=== PATIENT | female | born 1940 | race Two or more races ===

== ENCOUNTER 2024-05-14 12:25 | Inpatient (IN) | payer MEDICARE, MEDICAID, SELFPAY ==
[2024-05-14] VITALS (10 sets, daily range): BP systolic 112–188; BP diastolic 65–89; PULSE 61–74; RESP 14–96; TEMP 36.5–37.1; O2SAT 92–98; BMI 25.1
--- NOTE | 2024-05-14 13:06 | XR_ITS ---
Examination: PA lateral chest 2 views TECHNIQUE: Upright PA lateral chest 2 views Exam date and time: May 14, 2024 at 1407 hours INDICATIONS: Chest pain today. FINDINGS: Minor prominence left ventricle Mild vascular congestion Blunting of posterior costophrenic angles Increased AP dimension chest No lobar pneumonia No jus pulmonary edema IMPRESSION: Mild vascular congestion Suspicious for small bilateral pleural effusions
--- NOTE | 2024-05-14 13:06 | EKG_ITS ---
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[id number] Requested By: Jaun Johnston (REHABILITATION ASSISTANT) Order Number: [id number] Reading MD: Jaun Johnston (REHABILITATION ASSISTANT) Measurements Intervals [place] Rate: 68 P: 68 IA: 159 QRS: -74 QRSD: 87 T: 82 QT: 373 QTc: 397 Interpretive Statements SINUS RHYTHM WITH OCCASIONAL ECTOPIC PREMATURE COMPLEXES PATTERN CONSISTENT WITH PULMONARY DISEASE LEFT ANTERIOR FASCICULAR BLOCK [QRS AXIS <= -45, QR IN I, RS IN II] Compared to ECG 10/17/2022 09:06:00 Left anterior fascicular block now present Sinus bradycardia no longer present Sinus arrhythmia no longer present /store/S0/[id number]/ecg/[id number].pdf
--- NOTE | 2024-05-14 13:06 | PD.EDRME ---
Rapid Medical Screening Exam RME Arrival date/time: 05/14/24 12:25 84-year-old female presents the emergency department complains of chest pain and neck pain x 3 days Chief Complaint: General Adult/Misc Complain Time Seen by Provider: 05/14/24 12:28 Vital signs: Vital Signs Temperature 98.2 F 05/14/24 12:41 Pulse Rate 74 05/14/24 12:41 Respiratory Rate 20 05/14/24 12:41 Blood Pressure 161/89 H 05/14/24 12:41 Pulse Oximetry (%) 96 05/14/24 12:41 Oxygen Delivery Method Room Air 05/14/24 12:41
[2024-05-14 13:27] LABS: Basophils % (Auto) 1 % (0-2.5); Eosinophils % (Auto) 0 % (0-10); Hematocrit 45.3 % (36.0-46.0); Hemoglobin 15.4 g/dL (12.0-16.0); Immature Granulocytes % (Auto) 0 % (0-0); Immature Granulocytes Auto 0.02 Thou/mm3 (0.00-0.00); Lymphocytes # (Auto) 1.2 Thou/mm3 (1.0-4.8); Lymphocytes % (Auto) 17 % (10-50); Mean Corpuscular Hemoglobin 30.4 pg (25.0-35.0); Mean Corpuscular Volume 89 fL (80-100); Monocytes # (Auto) 0.5 Thou/mm3 (0.0-0.8); Monocytes % (Auto) 6 % (0-12); Neutrophils # (Auto) 5.4 Thou/mm3 (1.8-7.7); Neutrophils % (Auto) 76 % (37-80); Nucleated Red Blood Cell % 0 /100 WBC (0); Platelet Count 312 Thou/mm3 (140-440); RDW Standard Deviation 41.9 fL (36.4-46.3); Red Blood Count 5.07 Miln/mm3 (4.00-5.20); White Blood Count 7.1 Thou/mm3 (3.6-11.0)
[2024-05-14 13:41] LABS: INR 1.1 (0.9-1.3); Partial Thromboplastin Time 26.6 Seconds (22.0-36.0); Prothrombin Time 11.9 Seconds (9.0-12.2)
[2024-05-14 13:43] LABS: B-Type Natriuretic Peptide 174 pg/mL (0-100)
[2024-05-14 14:01] LABS: Alanine Aminotransferase 23 U/L (10-49); Albumin, Serum 4.7 gm/dL (3.4-4.8); Albumin/Globulin Ratio 1.6 (1.2-2.2); Alkaline Phosphatase 111 U/L (46-116); Anion Gap 7 (7-16); Aspartate Amino Transferase 23 U/L (0-34); BUN/Creatinine Ratio 20 Ratio (12-20); Bilirubin,Total 0.4 mg/dL (0.3-1.2); Blood Urea Nitrogen 12 mg/dL (9-23); Calcium 9.6 mg/dL (8.3-10.6); Calcium (Corrected) 9.6 mg/dL (8.5-10.1); Carbon Dioxide 27.7 mMol/L (20.0-31.0); Chloride 100 mMol/L (98-107); Creatinine (Component) 0.6 mg/dL (0.6-1.3); Estimated Creatinine Clearance 50.5 mL/min (>60); Globulin 2.9 gm/dL (2.3-3.5); Glucose 169 mg/dL (74-106); Osmolality,Calculated 273 (275-295); Potassium 4.8 mMol/L (3.4-5.1); Sodium 135 mMol/L (136-145); Total Protein 7.6 gm/dL (5.7-8.2); eGFR > 60 See Note
[2024-05-14] MEDS: Aspirin 325 MG TABLET PO (15:35)
[2024-05-14] MEDS: NITROGLYCERIN OINT 2% 1 INCH PACKET TOP (15:35)
[2024-05-14] MEDS: NITROGLYCERIN 0.4 MG SUBL BTL #25 SL (15:36)
[2024-05-14 16:34] LABS: Troponin I 1.084 ng/mL (0.0-0.045)
--- NOTE | 2024-05-14 16:42 | PD.EDADULT ---
ED General RME/HPI General Chief complaint: General Adult/Misc Complain Stated complaint: CHEST/NCK/HAND PAIN/SOB x ! DAYS Time Seen by Provider: 05/14/24 12:28 Arrival date/time: 05/14/24 12:25 RME / HPI RME / HPI narrative: 84-year-old female patient with significant history of diabetes mellitus hypercholesterolemia, was brought in by family for evaluation regarding chest pain. Patient been having chest pain since last night, substernal in location, severity moderate. Also complained of pain radiating to the neck and left upper extremity. Denies any cough denies any shortness of breath denies any other complaints no medication was taken prior arrival Related Data Home Medications ?Medication ?Instructions ?Recorded ?Confirmed empagliflozin 25 mg tablet 25 mg PO QAM 01/17/22 10/17/22 (Jardiance) insulin glargine 100 unit/mL (3 10 unit subcut QAM 01/17/22 10/17/22 mL) subcutaneous pen ([employer]aglar KwikPen U-100 Insulin) levothyroxine 25 mcg tablet 25 mcg PO QDAY 01/17/22 10/18/22 olopatadine 0.1 % eye drops 1 drp ophthalmic (eye) BID 01/17/22 06/20/22 atorvastatin 10 mg tablet 10 mg PO QDAY 10/17/22 10/17/22 ibuprofen 600 mg tablet 600 mg PO TID PRN Pain 10/17/22 10/17/22 Previous Rx's ?Medication ?Instructions ?Recorded flash glucose scanning reader #1 ea 06/23/22 (FreeStyle Yeny 2 Reese) flash glucose sensor (FreeStyle #1 ea 06/23/22 Yeny 2 Sensor kit) Allergies Allergy/AdvReac Type Severity Reaction Status Date / Time No Known Allergies Allergy Verified 05/14/24 12:30 Review of Systems Review of Systems Narrative Review of Systems: Review of system reviewed and within normal limits except mentioned in HPI ED Exam Narrative Physical exam: VITAL SIGNS: Reviewed. GENERAL APPEARANCE: Alert and interactive, follows commands, no acute distress, HEAD AND FACE: Non-traumatic. ENT: PERRL, pink conjunctivitis, eyelid no trauma, Mucous membrane moist. NECK: Supple, nontender, no nuchal rigidity. CHEST: Substernal chest tenderness, no crepitus, no paradoxical movement, no retractions. LUNGS: Clear, well ventilated, symmetric, no rales, no wheezing, no ronchi, no stridor, good breath sounds bilaterally. HEART: Regular rate, regular rhythm, no murmur, no gallops. ABDOMEN: Soft, positive bowel sounds, nondistended, no guarding, nontender, no rebound, no masses, RECTAL: Deferred. GENITAL: Deferred. NEUROLOGICAL: Gross motor function intact sensory function intact, Appropriate for age. MUSCULOSKELETAL: low back nontender, full range of motion. EXTREMITIES: Nontender, full range of motion. SKIN: Color pink, dry, no rash, no lacerations, no abrasions, no contusions. LYMPHATICS: Deferred. Course Quality Measures none Orders Category Date Time Status COVID-19 Screening Questionnaire NOW Care 05/14/24 16:30 Active Decision to Admit X1 Care 05/14/24 16:30 Active EKG (ED ONLY) *Do not use* NOW Care 05/14/24 13:06 Completed Notify provider NOW Care 05/14/24 16:30 Active Consult to Cardiology Stat Cons 05/14/24 15:20 Ordered EKG (ED Only) Stat Exams 05/14/24 13:06 Draft XR chest 2V Stat Exams 05/14/24 13:06 Completed B-Type Natriuretic Peptide Stat Lab 05/14/24 13:18 Completed CBC Stat Lab 05/14/24 13:18 Completed Comprehensive Metabolic Panel Stat Lab 05/14/24 13:18 Completed Magnesium Stat Lab 05/14/24 13:18 Completed Partial Thromboplastin Time AM DRAW Lab 05/16/24 05:00 Ordered Partial Thromboplastin Time Stat Lab 05/14/24 13:18 Completed Prothrombin Time with INR AM DRAW Lab 05/16/24 05:00 Ordered Prothrombin Time with INR Stat Lab 05/14/24 13:18 Completed Troponin I Stat Lab 05/14/24 13:18 Completed Troponin I Stat Lab 05/14/24 15:40 Completed Aspirin Med 05/14/24 15:20 Discontinued 325 mg PO X1 ONE Heparin Inj Med 05/14/24 16:29 Discontinued 3,350 unit IV X1 ONE Heparin/D5w 25K 250 ML Ivpb [Heparin in D5w Ivpb] Med 05/14/24 16:30 Active 25,000 unit in 250 ml IV 12 units/kg/hr Nitroglycerin Oint 2% [Nitro-paste Oint 2%] Med 05/14/24 15:20 Discontinued 1 inch TOP X1 ONE Nitroglycerin [Nitrostat 1/150] Med 05/14/24 15:20 Discontinued 0.4 mg SL X1 ONE Vital Signs Vital signs: Vital Signs Temperature 98.2 F 05/14/24 12:41 Pulse Rate 74 05/14/24 12:41 Respiratory Rate 20 05/14/24 12:41 Blood Pressure 161/89 H 05/14/24 12:41 Pulse Oximetry (%) 96 05/14/24 12:41 Oxygen Delivery Method Room Air 05/14/24 12:41 [facility] Patient data External records reviewed:: None Clinical information provided by:: patient Social determinants that could affect healthcare access:: none (None) Patient has the following chronic illnesses:: Diabetes mellitus How is presenting disease/condition affected by chronic disease/condition?: caused by Evaluation data The following diagnostics were reviewed and interpreted by me:: lab results, radiology exam(s) and EKG tracing(s) Lab and/or radiology exams considered but not ordered:: None Interpretation Summary: EKG as interpreted by me showed paced rhythm, ventricular rate of 68 bpm, OR interval 159 MS, no ST segment elevation or depression noted. Initial troponin was noted to be 0.4 after triage it went up to 1.0. Chest ray showed mild pleural effusion. No pneumonia noted Medications Medications considered but not ordered:: None Medication administrations:: Medication Administration History Acetaminophen (Acetaminophen 325 Mg Tablet) 650 mg PO Q6H PRN PRN Reason: PAIN SCALE 1-3 (mild Stop: 06/13/24 17:12 Hydrocodone Bitart/Acetaminophen (Hydrocodone/Apap 10/325 Tab) 1 tab PO Q4H PRN PRN Reason: PAIN SCALE 4-6 (Moderate Stop: 05/19/24 17:12 Aspirin (Aspirin Ec 81 Mg Tabec) 81 mg PO QDAY WALTER Stop: 06/14/24 08:59 Atorvastatin Calcium (Atorvastatin Calcium 20 Mg Tablet) 40 mg PO HS WALTER Stop: 06/14/24 20:59 Dextrose (Dextrose 50%-Water Inj 50 Ml Syringe) 25 ml IV Q15MIN PRN PRN Reason: BG 50-70 responsive npo pt Stop: 06/13/24 17:20 Dextrose (Dextrose 50%-Water Inj 50 Ml Syringe) 50 ml IV Q15MIN PRN PRN Reason: BG <50 OR BG <70 & pt unresponsive Stop: 06/13/24 17:20 Glucagon (Glucagon Inj 1 Mg Vial) 1 mg IM Q15MIN PRN PRN Reason: BG <70, and no IV access Heparin Sodium/Dextrose (Heparin In D5w Ivpb) 25,000 unit in 250 mls @ 6.651 mls/hr IV .Q24H [facility]; Protocol Stop: 05/28/24 16:29 Last Admin: 05/14/24 17:16 Dose: 12 units/kg/hr, 6.651 mls/hr Documented By: TM Co-signed By: ED Insulin Human Lispro (Insulin Lispro (Admelog) 1 Unit/0.01 Ml Unit) 0 unit SC AC [facility]; Protocol Stop: 06/14/24 07:29 Levothyroxine Sodium (Levothyroxine Sodium 25 Mcg Tablet) 75 mcg PO [facility] Stop: 06/14/24 05:59 Morphine Sulfate (Morphine Sulf Inj 10 Mg/Ml Vial) 0.5 mg IVP Q4H PRN PRN Reason: Pain 7-10 Stop: 05/19/24 17:31 Discontinued Medications Aspirin (Aspirin 325 Mg Tablet) 325 mg PO X1 ONE Stop: 05/14/24 15:21 Last Admin: 05/14/24 15:35 Dose: 325 mg Documented By: TM Comments: had to waste first one, it dropped on the floor Aspirin (Aspirin Ec 81 Mg Tabec) 81 mg PO QDAY [facility] Stop: 06/14/24 08:59 Atorvastatin Calcium (Atorvastatin Calcium 10 Mg Tablet) 40 mg PO X1 ONE Stop: 05/14/24 17:26 Last Admin: 05/14/24 18:05 Dose: 40 mg Documented By: TM Heparin Sodium (Porcine) (Heparin Sod Inj 5000 Unit/Ml Vial) 3,350 unit 60 unit/kg (3350 unit) IV X1 ONE; Protocol Stop: 05/14/24 16:30 Last Admin: 05/14/24 17:15 Dose: 3,350 unit Documented By: TM Co-signed By: ED Levothyroxine Sodium (Levothyroxine Sodium 100 Mcg Tablet) 72 mcg PO [facility] Stop: 06/14/24 05:59 Nitroglycerin (Nitroglycerin 0.4 Mg Subl Btl #25) 0.4 mg SL X1 ONE Stop: 05/14/24 15:21 Last Admin: 05/14/24 15:36 Dose: 0.4 mg Documented By: TM Nitroglycerin (Nitroglycerin Oint 2% 1 Inch Packet) 1 inch TOP X1 ONE Stop: 05/14/24 15:21 Last Admin: 05/14/24 15:35 Dose: 1 inch Documented By: MARIA INES Aspirin, Nitropaste, nitro, and heparin drip and bolus Consultations Consultation(s) initiated? (list below): Yes Consultation #1 (Physician, Specialty, Details): Hematologist Oncologist, Dr. Stroud, thank you DrEduardo Diagnosis Differential Diagnosis ED Complaint MDM: Chest pain, elevated troponin, non-STEMI Most likely diagnosis given after review of the tests above:: Non-STEMI Admission Indicated Admission indicated?: indicated Explain why admission is indicated or not indicated:: Needs to be admitted for further management Admission Request Was there a request for admission?: No Disposition Plan Disposition Plan: Admit Medical Decision Making MDM Narrative MDM Narrative: 84-year-old female patient with significant history of diabetes mellitus hypercholesterolemia, was brought in by family for evaluation regarding chest pain. Patient been having chest pain since last night, substernal in location, severity moderate. Also complained of pain radiating to the neck and left upper extremity. Denies any cough denies any shortness of breath denies any other complaints no medication was taken prior to arrival. Initial troponin was noted to be 0.4 after 3 hours went up to 1. The rest of the labs unremarkable. EKG showed no ST segment elevation depression noted. Chest x-ray showed Mild vascular congestion Suspicious for small bilateral pleural effusions I spoke with Dr. Stroud director of consumer affairs, who told me to admit the patient under hospitalist, started patient on heparin drip and aspirin Patient received aspirin and nitro and Nitropaste with complete resolution of chest pain. Differential Diagnosis Differential Diagnosis: Chest pain, elevated troponin, non-STEMI Lab Data 05/14/24 13:18 05/14/24 13:18 Labs: Lab Results 05/14/24 05/14/24 Range/Units 13:18 15:40 WBC 7.1 (3.6-11.0) Thou/mm3 RBC 5.07 (4.00-5.20) Miln/mm3 Hgb 15.4 (12.0-16.0) g/dL Hct 45.3 (36.0-46.0) % MCV 89 (80-100) fL MCH 30.4 (25.0-35.0) pg MCHC 34.0 (31.0-37.0) g/dl RDW Std Deviation 41.9 (36.4-46.3) fL Plt Count 312 (140-440) Thou/mm3 Neut % (Auto) 76 (37-80) % Lymph % (Auto) 17 (10-50) % [place] % (Auto) 6 (0-12) % Eos % (Auto) 0 (0-10) % Baso % (Auto) 1 (0-2.5) % Neut # (Auto) 5.4 (1.8-7.7) Thou/mm3 Lymph # (Auto) 1.2 (1.0-4.8) Thou/mm3 [place] # (Auto) 0.5 (0.0-0.8) Thou/mm3 Eos # (Auto) 0.0 (0.0-0.5) Thou/mm3 Baso # (Auto) 0.0 (0.0-0.2) Thou/mm3 Immature Gran # (Auto) 0.02 H (0.00-0.00) Thou/mm3 Absolute Nucleated RBC 0.00 (0.00-0.00) Thou/mm3 Immature Gran % 0 (0-0) % Nucleated RBC % 0 (0) /100 WBC PT 11.9 (9.0-12.2) Seconds INR 1.1 (0.9-1.3) APTT 26.6 (22.0-36.0) Seconds Sodium 135 L (136-145) mMol/L Potassium 4.8 (3.4-5.1) mMol/L Chloride 100 (98-107) mMol/L Carbon Dioxide 27.7 (20.0-31.0) mMol/L Anion Gap 7 (7-16) BUN 12 (9-23) mg/dL Creatinine 0.6 (0.6-1.3) mg/dL Estim Creat Clear Calc 50.5 L (>60) mL/min eGFR > 60 (60 - ) See Note BUN/Creatinine Ratio 20 (12-20) Ratio Glucose 169 H (74-106) mg/dL Calculated Osmolality 273 L (275-295) Calcium 9.6 (8.3-10.6) mg/dL Corrected Calcium 9.6 (8.5-10.1) mg/dL Magnesium 2.0 (1.6-2.6) mg/dL Total Bilirubin 0.4 (0.3-1.2) mg/dL AST 23 (0-34) U/L ALT 23 (10-49) U/L Alkaline Phosphatase 111 (46-116) U/L Troponin I 0.420 H* 1.084 H* D (0.0-0.045) ng/mL B-Natriuretic Peptide 174 H (0-100) pg/mL Total Protein 7.6 (5.7-8.2) gm/dL Albumin 4.7 (3.4-4.8) gm/dL Globulin 2.9 (2.3-3.5) gm/dL Albumin/Globulin Ratio 1.6 (1.2-2.2) Discharge Plan Plan Patient Disposition: Admit Acute Care w/in Hospital Problem List Clinical Impression: Non-ST elevation CA (NSTEMI)
[2024-05-14] MEDS: HEPARIN SOD INJ 5000 UNIT/ML VIAL 3350 UNIT IV (17:15)
[2024-05-14] MEDS: Heparin/D5w 25K 250 ML Ivpb 25,000 UNIT/250 ML BAG 6.651 UNIT IV (17:16)
--- NOTE | 2024-05-14 17:19 | ECHO_ITS ---
Transthoracic Echo Report Ht (in): 58 Wt (lb): 122 Exam Location: [employer] Status: Inpatient Vinyl Hanger: Stephania Pop Indications: Procedure Performed: BP: 120 / 76 HR: Rhythm: PVC Technical Quality: Fair MEASUREMENTS (Male / Female) Normal Values 2D ECHO LV Diastolic Diameter PLAX 4.7 cm 4.2 - 5.9 / 3.9 - 5.3 cm LV Systolic Diameter PLAX 3.4 cm IVS Diastolic Thickness 0.9 cm 0.6 - 1.0 / 0.6 - 0.9 cm LVPW Diastolic Thickness 0.8 cm 0.6 - 1.0 / 0.6 - 0.9 cm LV Relative Wall Thickness 0.4 LVOT Diameter 1.6 cm LA Volume Index 44.0 cm?/m? 16 - 28 cm?/m? Ascending Aorta Diameter 2.9 cm M-MODE Aortic Root Diameter MM 2.2 cm LA Systolic Diameter MM 4.4 cm LA Ao Ratio MM 2.0 AV Cusp Separation MM 1.7 cm DOPPLER AV Peak Velocity 134.0 cm/s AV Peak Gradient 7.2 mmHg AV Mean Gradient 4.0 mmHg AV Velocity Time Integral 27.0 cm LVOT Peak Velocity 94.6 cm/s LVOT Peak Gradient 3.6 mmHg LVOT Velocity Time Integral 21.2 cm AV Area Cont Eq vti 1.6 cm? AV Area Cont Eq pk 1.4 cm? MV Peak Velocity 99.0 cm/s MV Peak Gradient 3.9 mmHg MV Mean Velocity 57.8 cm/s MV Mean Gradient 2.0 mmHg MV Area PHT 4.7 cm? MR Peak Velocity 364.0 cm/s MR Peak Gradient 53.0 mmHg Mitral E Point Velocity 82.9 cm/s Mitral A Point Velocity 88.3 cm/s Mitral E to A Ratio 0.9 LV E' Lateral Velocity 9.0 cm/s Mitral E to LV E' Lateral Ratio 9.2 LV E' Septal Velocity 7.3 cm/s Mitral E to LV E' Septal Ratio 11.4 TR Peak Velocity 231.0 cm/s TR Peak Gradient 21.3 mmHg FINDINGS Left Ventricle Normal left ventricular size, wall thickness, systolic function with no obvious regional wall motion abnormalities. The ejection fraction is visually estimated at 55-60%. Right Ventricle The right ventricle is normal in size and systolic function. The estimated right ventricular systoli c pressure, 27mmHg. RAP 5. Left Atrium The left atrium is moderately dilated. Right Atrium The right atrium is normal by two-dimensional imaging, color flow and Doppler imaging with no struct ural abnormalities, no thrombus formation present. Atrial Septum The interatrial septum appears normal with no evidence of a shunt. Aorta The aorta is normal by two-dimensional, color flow and Doppler interrogation. Mitral Valve The mitral valve is normal by two-dimensional, color flow and Doppler interrogation. There is mild mitral valve regurgitation. Aortic Valve The aortic valve is trileaflet and normal by two-dimensional, color flow and Doppler interrogation. There is mild aortic valve regurgitation. Tricuspid Valve The tricuspid valve is normal by two-dimensional, color flow and Doppler interrogation. There is mil d tricuspid valve regurgitation. Pulmonic Valve There is trace pulmonic valve regurgitation. Vessels The pulmonary artery appears normal. The inferior vena cava pulmonary and hepatic veins appear travis l. Pericardium The pericardium is normal by two-dimensional imaging. There is no significant pericardial effusion. CONCLUSIONS Indication: Chest pain Normal LV size and function. Estimated EF 55-60% Normal RV size and function. Moderate LA dilatation Mild MR, TR, AI. Trace PI. Jose Stroud (Electronically Signed) Final Date: 17 May 2024 17:20
--- NOTE | 2024-05-14 17:28 | ESHP_ITS ---
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 The patient reported the pain to be retrosternal, radiating to bilateral shoulder and back of neck. She did not take any medications until she presented to ED, as she was expecting the pain to go on its own. She was given sublingual nitro in the ED after which her pain improved. She denied any lightheadedness, headache, sore throat, SOB, abdominal pain, any changes in bowel or bladder habit, or leg swelling. She denied any fever or chills, nausea or vomiting. In the ED her vitals were significant for blood pressure 161/89, CBC WNL, CMP was significant for sodium 135, blood sugar 169, troponin 0.420 that trended up to 1.084. BNP was 174. The patient received aspirin 325 mg, Nitropaste and nitro tape, was started on heparin drip. The patient was admitted to telemetry unit for further management of acute chest pain. PMH: As mentioned above PSHx: As mentioned above Family history: Unremarkable Social history: Denies alcohol, smoking or any drug abuse Medications: Levothyroxine 75 mcg daily, metformin 500 mg twice daily, and atorvastatin 20 Mg daily Review of Systems Review of Systems Systems Reviewed: All systems reviewed, normal except as documented Exam Vital Signs Temp Pulse Resp BP Pulse Ox O2 Del Method 98.0 F 61 17 114/66 96 Room Air 05/14/24 16:00 05/14/24 16:00 05/14/24 16:00 05/14/24 16:00 05/14/24 16:05/14/24 16:00 Narrative Exam General: Elderly, cooperative, well-nourished lady, no acute distress, Alert and Oriented x 3 HEENT: Moist mucous membranes, oropharynx clear Neck: Supple, No masses, No JVD CVS: S1S2 Regular rate and rhythm, No murmurs, rubs or gallops Lungs: Clear to auscultation with no accessory use, no wheeze no rhonchi Abd: Soft, NT/ND, +BS, no organomegaly Ext: No edema, warm and well perfused Skin: No rash Psych: Appropriate mood and affect Results: Labs 05/14/24 13:18 05/14/24 13:18 Labs: Short CBC 05/14/24 Range/Units 13:18 WBC 7.1 (3.6-11.0) Thou/mm3 Hgb 15.4 (12.0-16.0) g/dL Hct 45.3 (36.0-46.0) % Plt Count 312 (140-440) Thou/mm3 BMP 05/14/24 13:18 Sodium 135 L Potassium 4.8 Chloride 100 Carbon Dioxide 27.7 BUN 12 Creatinine 0.6 Glucose 169 H Calcium 9.6 Cardiac Enzymes 05/14/24 05/14/24 Range/Units 13:18 15:40 Troponin I 0.420 H* 1.084 H* D (0.0-0.045) ng/mL Liver Function 05/14/24 Range/Units 13:18 Total Bilirubin 0.4 (0.3-1.2) mg/dL AST 23 (0-34) U/L ALT 23 (10-49) U/L Alkaline Phosphatase 111 (46-116) U/L Albumin 4.7 (3.4-4.8) gm/dL Quality Measures Quality Measures VTE prophylaxis Advance care planning discussed with:: patient and child Medications Home Medications and Allergies Home Medications ?Medication ?Instructions ?Recorded ?Confirmed ?Type empagliflozin 25 mg tablet 25 mg PO QAM 01/17/22 10/17/22 History (Jardiance) insulin glargine 100 unit/mL (3 10 unit subcut QA 01/17/22 10/17/22 History mL) subcutaneous pen (Basaglar KwikPen U-100 Insulin) levothyroxine 25 mcg tablet 25 mcg PO QDAY 01/17/22 10/18/22 History olopatadine 0.1 % eye drops 1 drp ophthalmic (eye) BID 01/17/22 06/20/22 History atorvastatin 10 mg tablet 10 mg PO QDAY 10/17/22 10/17/22 History ibuprofen 600 mg tablet 600 mg PO TID PRN Pain 10/17/22 10/17/22 History Allergies Allergy/AdvReac Type Severity Reaction Status Date / Time No Known Allergies Allergy Verified 05/14/24 12:30 Visit Medications Acetaminophen (Acetaminophen 325 Mg Tablet) 650 mg PO Q6H PRN PRN Reason: PAIN SCALE 1-3 (mild Stop: 06/13/24 17:12 Hydrocodone Bitart/Acetaminophen (Hydrocodone/Apap 10/325 Tab) 1 tab PO Q4H PRN PRN Reason: PAIN SCALE 4-6 (Moderate Stop: 05/19/24 17:12 Dextrose (Dextrose 50%-Water Inj 50 Ml Syringe) 25 ml IV Q15MIN PRN PRN Reason: BG 50-70 responsive npo pt Stop: 06/13/24 17:20 Dextrose (Dextrose 50%-Water Inj 50 Ml Syringe) 50 ml IV Q15MIN PRN PRN Reason: BG <50 OR BG <70 & pt unresponsive Stop: 06/13/24 17:20 Glucagon (Glucagon Inj 1 Mg Vial) 1 mg IM Q15MIN PRN PRN Reason: BG <70, and no IV access Heparin Sodium/Dextrose (Heparin In D5w Ivpb) 25,000 unit in 250 mls @ 6.651 mls/hr IV .Q24H [facility]; Protocol Stop: 05/28/24 16:29 Last Admin: 05/14/24 17:16 Dose: 12 units/kg/hr, 6.651 mls/hr Insulin Human Lispro (Insulin Lispro (Admelog) 1 Unit/0.01 Ml Unit) 0 unit SC AC [facility]; Protocol Stop: 06/14/24 07:29 Levothyroxine Sodium (Levothyroxine Sodium 100 Mcg Tablet) 75 mcg PO ACBR [facility] Stop: 06/14/24 05:59 Discontinued Medications Aspirin (Aspirin 325 Mg Tablet) 325 mg PO X1 ONE Stop: 05/14/24 15:21 Last Admin: 05/14/24 15:35 Dose: 325 mg Atorvastatin Calcium (Atorvastatin Calcium 10 Mg Tablet) 40 mg PO X1 ONE Stop: 05/14/24 17:26 Heparin Sodium (Porcine) (Heparin Sod Inj 5000 Unit/Ml Vial) 3,350 unit 60 unit/kg (3350 unit) IV X1 ONE; Protocol Stop: 05/14/24 16:30 Last Admin: 05/14/24 17:15 Dose: 3,350 unit Levothyroxine Sodium (Levothyroxine Sodium 100 Mcg Tablet) 72 mcg PO ACBR [facility] Stop: 06/14/24 05:59 Nitroglycerin (Nitroglycerin 0.4 Mg Subl Btl #25) 0.4 mg SL X1 ONE Stop: 05/14/24 15:21 Last Admin: 05/14/24 15:36 Dose: 0.4 mg Nitroglycerin (Nitroglycerin Oint 2% 1 Inch Packet) 1 inch TOP X1 ONE Stop: 05/14/24 15:21 Last Admin: 05/14/24 15:35 Dose: 1 inch Assessment & Plan Plan The patient is a 84-year-old female with significant past medical history of diabetes mellitus type 2, 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 #Acute chest pain 2/2 #Unstable angina DDx: NSTEMI, as no significant EKG changes The patient reported the pain to be retrosternal, radiating to bilateral shoulder and back of neck. She did not take any medications until she presented to ED, as she was expecting the pain to go on its own. She was given sublingual nitro in the ED after which her pain improved. Troponin 0.420 that trended up to 1.084 Received aspirin 325 Mg, nitro paste and nitro type -Admitted to telemetry unit -Continue on heparin drip -Daily aspirin 81 Mg -Atorvastatin 40 Mg daily -Continue to trend troponin every 4 hourly until delta is achieved -A.m. labs for lipid panel, TSH, electrolytes, CBC and BMP -Superintendent Measurement Dr. Stroud consulted, obesity recommendations #Diabetes mellitus type 2 Patient is on home metformin 500 Mg twice daily Ordered A1c -On insulin lispro SSI AC with fingerstick blood sugar -Monitor blood sugar #Hypothyroidism Patient is on home levothyroxine 75 Mcg in the morning daily Ordered TSH -Started on home levothyroxine dose 75 mcg in the morning #Mild hypoosmolar hyponatremia Etiology currently unknown DDx: Low oral intake in the setting of chest pain for past 5 days -Monitor daily BMP Dispo: Patient admitted to telemetry unit for further management of acute chest pain Diet: Cardiac diet DVT prophylaxis: Currently on heparin drip CODE STATUS: Full code The patient's management plan was discussed with my attending physician MD Lester See MD, PGY2 Attending Provider Attestation/Addendum I have examined the patient, reviewed labs and imaging findings, discussed the case with the resident(s), and reviewed entered orders. I agree with the plan of care as outlined in this note, with these additional summaries/recommendations: Patient is a 84-year-old female with a medical history of hypothyroidism, diabetes mellitus type 2, osteoarthritis, hyperlipidemia, and history of DVT who presented to [facility] emergency department on 05/14/2024 with chief complaint of chest pain. Patient was found to have elevated troponins and hospitalist team consulted for continuation of care. # NSTEMI type I versus type II Presented with chest pain radiating to the neck Given typical features and patient's age this is concerning for ACS or plaque rupture MJ score: 4 points indicating 20% risk at 14 days of all cause mortality Melody score: 122 points indicating a percent probability of from admission to 6 months Troponin elevated to 1.084 EKG: Sinus rhythm, rate 68, nonspecific ST changes although no ST elevation Work-up: Telemetry, troponin until downtrending, serial EKGs, TTE CAD risk factor screening: A1c, lipid panel, TSH, U tox Treatment: Titrate O2 as needed for symptoms Antiplatelet: Status post aspirin 325 mg p.o. x 1 in ED. Start aspirin 81 mg p.o. daily. Appreciate cardio recs on Plavix Anticoagulation: Heparin gtt. Plaque stabilization: Atorvastatin 40 mg p.o. daily Cardiac remodeling prevention: We will hold starting BB and MARTELL/ARB for for now as systolic blood pressure appears to have decreased after receiving nitro in the ED. Will reevaluate starting in AM. Okay to give IV morphine as needed for chest pain or nitroglycerin as needed if blood pressure can tolerate Plan: Cardiology consulted and recommendations appreciated. Continue above management. # Diabetes mellitus type 2 Last A1c on file is from 06/22/2022 and was 6.5%. Start insulin sliding scale with Accu-Cheks. Target blood sugar of 140-180 while hospitalized. Repeat A1c ordered. # Hypothyroidism Order free T4 and TSH. Pending home medication reconciliation and will resume levothyroxine when able # Dyslipidemia Plan: Lipid panel ordered and start atorvastatin Dr. Astudillo
--- NOTE | 2024-05-14 17:48 | ESCONSULT_ITS ---
<Statement entered by Jose Stroud MD - 05/16/24 04:21> I have personally seen and examined the patient separately on the above date of service and discussed the plan of care with the resident. I reviewed the resident Dr. Bergman consultation progress note and agree with the resident findings and plan in the note above and have also edited the documentation to reflect my findings and plan. 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 Patient complaining of substernal chest pain or chest pressure radiating to her neck or jaw left arm which is worse with exertion over the last few days. Pain has been intermittent over the last few days but is made worse with exertion up to 8 or 10 intensity. Patient denies any Nausea vomiting or diaphoresis with chest pain. Patient denies any kind of back swelling or orthopnea or PND or palpitations at the present point of time. Denies any cough fever chills or cough or sputum production. Family history positive for diabetes mellitus and hypertension but no clear history of heart disease. Denies any Smoking alcohol drug abuse and lives with her son here in [place]. In the emergency department initial set of vitals showed blood pressure 116/89 mmHg, heart rate of 60/min, afebrile, saturation normal on room air. Labs showed hemoglobin of 15.4, WBC 7.1, platelets of 312, BUN of 12 creatinine of 0.6 sodium of 135, glucose of 169, initial troponin was 0.42 and repeat troponin was 1.08. LFTs are completely normal. EKG was performed in the emergency department showed normal sinus rhythm with occasional PVCs, left anterior fascicle block with nonspecific T wave changes with T wave flattening and inversions in 1 and aVL. Chest x-ray showed mild vascular congestion but no evidence of pneumonia. Cardiology was consulted for further evaluation of chest pain and elevated troponins. Plan: Acute coronary syndrome-NSTEMI type I > type II Patient presented with chest pain chest pressure for the past couple of days and has typical chest pain features. Troponins initially was 0.42 and the repeat was 1.08. EKG shows normal sinus rhythm with PVCs as well as nonspecific T wave inversion and flattening in lead I and aVL. Otherwise no other acute ischemic changes. Risk factors includes hypertension diabetes mellitus age. Given her elevated troponins and the risk factors with ongoing chest pain patient was recommended a left heart cardiac catheterization which will be performed on Friday. All the risk benefits and alternatives of LHC were described in detail including the risk of bleeding, heart attack, stroke and in detail. Patient agreeable for procedure and we will keep her n.p.o. Friday night and plan for procedure on Friday morning. Heparin drip for the NSTEMI type I Check TSH A1c and lipid profile for further cardiac stratification. Aspirin, high intensity statin and beta-zaheer if blood pressure is permissible. Strict control of diabetes and hypertension recommended. Management of rest of the medical conditions as per primary team and other consultants. Thank you for the consult and allowing me to participate in the care of the patient. Cardiology will continue to follow. Jose Stroud M.D. 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 She reports no having chest pain or having feelings like this before. She denies having a panic attack of some sort like this. She denies any recent travel, sick contacts. She also denies fever, chills as well. She also denies having any leg swelling. She has no other complaints at this time. Unsure if pt is on blood thinner at this time. ED Course: She arrived to the blood pressure of 161/89 and heart rate 63 and afebrile. Labs were done and showed a sodium 135, potassium of 4.8, magnesium 2.0, BUN/creatinine 12 and 0.6 respectively, calcium 9.6, bicarb of 20, glucose of 169 troponin 0.42, white count of 7.1 hemoglobin 15.4, BNP of 174. EKG was done was normal sinus rhythm, rate of 62, showed a PVC in lead II. Patient was given ASA 325, nitroglycerin patch, and also started on heparin drip. Medicine and cardiology was consulted and patient was admitted to the floors. PMHx: As above Surgeries: Bilat Knee replacement Allergies: No known allergies Medicines: Synthroid 75 mcg daily, metformin 500 mg twice daily, Lipitor 20 mg daily Family history: Unremarkable for heart disease, pulmonary surgery, or stents. Family history positive for diabetes Social history: Denies any drinking, smoking or any drug use. Patient lives with her son cc:: cc: Review of Systems Review of Systems Narrative Review of Systems: Constitutional: No fever, chills, fatigue, weakness, weight loss HEENT: No eye pain, vision loss, ear pain, hearing loss, dysphagia, Cardiovascular: + chest pain, palpitations, edema, pain with walking Respiratory: No cough, shortness of breath, wheezing GI: No NVD, abdominal pain, constipation, blood in stool, loss of appetite, heartburn Extremities: No presence of pitting edema MSK: No back pain, joint pain, joint swelling Neuro: No dizziness, numbness, weakness, headaches, seizures, tremors Psych: No anxiety, depression Exam Vital Signs Temp Pulse Resp BP Pulse Ox O2 Del Method 98.0 F 65 18 114/66 96 Room Air 05/14/24 16:00 05/14/24 17:35 05/14/24 17:35 05/14/24 16:00 05/14/24 16:00 05/14/24 16:00 Narrative Exam General: AAOx3, NAD, slovak speaking eldery woman HEENT: Moist mucous membranes, conjunctiva clear, EOMI, PERRLA, Cardiovascular: S1, S2, radial pulses +2 bilat, RRR Pulmonary: CTAB bilat no cough, no wheezing GI: No tenderness to light or deep palpitation, no guarding, rigidity, rebound tenderness or distension Extremities: No presence of trace or pitting edema in lower extremities bilaterally, dorsalis pedis pulses +2 bilaterally Neuro: AAOx3, no focal motor or sensory deficits in the UE or LE bilat Psych: Good judgement, thought and behavior Results Labs 05/14/24 13:18 05/14/24 13:18 Labs: Short CBC 05/14/24 Range/Units 13:18 WBC 7.1 (3.6-11.0) Thou/mm3 Hgb 15.4 (12.0-16.0) g/dL Hct 45.3 (36.0-46.0) % Plt Count 312 (140-440) Thou/mm3 BMP 05/14/24 13:18 Sodium 135 L Potassium 4.8 Chloride 100 Carbon Dioxide 27.7 BUN 12 Creatinine 0.6 Glucose 169 H Calcium 9.6 Cardiac Enzymes 05/14/24 05/14/24 Range/Units 13:18 15:40 Troponin I 0.420 H* 1.084 H* D (0.0-0.045) ng/mL Liver Function 05/14/24 Range/Units 13:18 Total Bilirubin 0.4 (0.3-1.2) mg/dL AST 23 (0-34) U/L ALT 23 (10-49) U/L Alkaline Phosphatase 111 (46-116) U/L Albumin 4.7 (3.4-4.8) gm/dL Quality Measures Quality Measures VTE prophylaxis Advance care planning discussed with:: patient Medications Home Medications and Allergies Home Medications ?Medication ?Instructions ?Recorded ?Confirmed ?Type empagliflozin 25 mg tablet 25 mg PO QAM 01/17/22 10/17/22 History (Jardiance) insulin glargine 100 unit/mL (3 10 unit subcut QAM 01/17/22 10/17/22 History mL) subcutaneous pen (Basaglar KwikPen U-100 Insulin) levothyroxine 25 mcg tablet 25 mcg PO QDAY 01/17/22 10/18/22 History olopatadine 0.1 % eye drops 1 drp ophthalmic (eye) BID 01/17/22 06/20/22 History atorvastatin 10 mg tablet 10 mg PO QDAY 10/17/22 10/17/22 History ibuprofen 600 mg tablet 600 mg PO TID PRN Pain 10/17/22 10/17/22 History Allergies Allergy/AdvReac Type Severity Reaction Status Date / Time No Known Allergies Allergy Verified 05/14/24 12:30 Visit Medications Acetaminophen (Acetaminophen 325 Mg Tablet) 650 mg PO Q6H PRN PRN Reason: PAIN SCALE 1-3 (mild Stop: 06/13/24 17:12 Hydrocodone Bitart/Acetaminophen (Hydrocodone/Apap 10/325 Tab) 1 tab PO Q4H PRN PRN Reason: PAIN SCALE 4-6 (Moderate Stop: 05/19/24 17:12 Aspirin (Aspirin Ec 81 Mg Tabec) 81 mg PO QDAY [facility] Stop: 06/14/24 08:59 Atorvastatin Calcium (Atorvastatin Calcium 20 Mg Tablet) 40 mg PO HS [facility] Stop: 06/14/24 20:59 Dextrose (Dextrose 50%-Water Inj 50 Ml Syringe) 25 ml IV Q15MIN PRN PRN Reason: BG 50-70 responsive npo pt Stop: 06/13/24 17:20 Dextrose (Dextrose 50%-Water Inj 50 Ml Syringe) 50 ml IV Q15MIN PRN PRN Reason: BG <50 OR BG <70 & pt unresponsive Stop: 06/13/24 17:20 Glucagon (Glucagon Inj 1 Mg Vial) 1 mg IM Q15MIN PRN PRN Reason: BG <70, and no IV access Heparin Sodium/Dextrose (Heparin In D5w Ivpb) 25,000 unit in 250 mls @ 6.651 mls/hr IV .Q24H [facility]; Protocol Stop: 05/28/24 16:29 Last Admin: 05/14/24 17:16 Dose: 12 units/kg/hr, 6.651 mls/hr Insulin Human Lispro (Insulin Lispro (Admelog) 1 Unit/0.01 Ml Unit) 0 unit SC AC [facility]; Protocol Stop: 06/14/24 07:29 Levothyroxine Sodium (Levothyroxine Sodium 25 Mcg Tablet) [facility] Stop: 06/14/24 05:59 Morphine Sulfate (Morphine Sulf Inj 10 Mg/Ml Vial) 0.5 mg IVP Q4H PRN PRN Reason: Pain 7-10 Stop: 05/19/24 17:31 Discontinued Medications Aspirin (Aspirin 325 Mg Tablet) 325 mg PO X1 ONE Stop: 05/14/24 15:21 Last Admin: 05/14/24 15:35 Dose: 325 mg Aspirin (Aspirin Ec 81 Mg Tabec) 81 mg PO QDAY [facility] Stop: 06/14/24 08:59 Atorvastatin Calcium (Atorvastatin Calcium 10 Mg Tablet) 40 mg PO X1 ONE Stop: 05/14/24 17:26 Heparin Sodium (Porcine) (Heparin Sod Inj 5000 Unit/Ml Vial) 3,350 unit 60 unit/kg (3350 unit) IV X1 [facility]; Protocol Stop: 05/14/24 16:30 Last Admin: 05/14/24 17:15 Dose: 3,350 unit Levothyroxine Sodium (Levothyroxine Sodium 100 Mcg Tablet) 72 mcg PO ACBR [facility] Stop: 06/14/24 05:59 Nitroglycerin (Nitroglycerin 0.4 Mg Subl Btl #25) 0.4 mg SL X1 ONE Stop: 05/14/24 15:21 Last Admin: 05/14/24 15:36 Dose: 0.4 mg Nitroglycerin (Nitroglycerin Oint 2% 1 Inch Packet) 1 inch TOP X1 ONE Stop: 05/14/24 15:21 Last Admin: 05/14/24 15:35 Dose: 1 inch Assessment & Plan Plan Assessment The patient is a 84-year-old female with significant past medical history of diabetes mellitus type 2, 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 #NSTEMI type I Troponin 0.41 -> ~1.0 No prior history of LA Patient has no ST changes on EKG Patient may likely have NSTEMI, has history of bilateral PEs pulmonary infarct as well Will continue to medically manage and may intervene with PCI if needed on Friday Plan: ?Continue with Lipitor 40 mg ?Continue heparin drip ?Continue aspirin ?Continue troponin every 4 hours until peak ?Follow-up lipid panel, TSH, A1c ?Keep magnesium and potassium above 2 and 4 respectively #Diabetes mellitus type 2 On metformin at home Plan: ? Follow-up A1c #Hypothyroidism On home Synthroid 75 mcg Plan: ? Follow-up TSH ? Continue with home Synthroid 75 mcg #Mild hypoosmolar hyponatremia Above managed by primary team Patient seen and care discussed with my attending physician, Dr. Luanne Ballard, PGY-1 Attending Provider Attestation/Addendum
[2024-05-14] MEDS: ATORVASTATIN CALCIUM 10 MG TABLET 40 MG PO (18:05)
[2024-05-14 21:07] LABS: Troponin I 2.764 ng/mL (0.0-0.045)
[2024-05-14 23:44] LABS: Partial Thromboplastin Time 49.2 Seconds (22.0-36.0)
[2024-05-14 23:49] LABS: Troponin I 3.086 ng/mL (0.0-0.045)
[2024-05-15] VITALS (7 sets, daily range): BP systolic 112–120; BP diastolic 66–81; PULSE 61–96; RESP 17–94; TEMP 36.1–36.8; O2SAT 94–96; BMI 24.7
--- NOTE | 2024-05-15 02:32 | PC.NURSE ---
REPORT CALLED TO [facility]. ALL QUESTIONS ASKED AND ANSWERED. PATIENT TRANSFERRED TO ROOM BY STAFF. NO DISTRESS NOTICED AT TRANSFER. PATIENT REMAINS ON ROOM AIR.
[2024-05-15] MEDS: LEVOTHYROXINE SODIUM 25 MCG TABLET 75 MCG PO (05:34)
[2024-05-15 06:37] LABS: Basophils % (Auto) 1 % (0-2.5); Eosinophils # (Auto) 0.1 Thou/mm3 (0.0-0.5); Eosinophils % (Auto) 1 % (0-10); Hematocrit 41.8 % (36.0-46.0); Hemoglobin 14.2 g/dL (12.0-16.0); Immature Granulocytes % (Auto) 0 % (0-0); Immature Granulocytes Auto 0.01 Thou/mm3 (0.00-0.00); Lymphocytes # (Auto) 1.8 Thou/mm3 (1.0-4.8); Lymphocytes % (Auto) 26 % (10-50); Mean Corpuscular Hemoglobin 30.6 pg (25.0-35.0); Mean Corpuscular Volume 90 fL (80-100); Monocytes # (Auto) 0.5 Thou/mm3 (0.0-0.8); Monocytes % (Auto) 7 % (0-12); Neutrophils # (Auto) 4.5 Thou/mm3 (1.8-7.7); Neutrophils % (Auto) 65 % (37-80); Nucleated Red Blood Cell % 0 /100 WBC (0); Platelet Count 284 Thou/mm3 (140-440); RDW Standard Deviation 42.7 fL (36.4-46.3); Red Blood Count 4.64 Miln/mm3 (4.00-5.20); White Blood Count 6.9 Thou/mm3 (3.6-11.0)
[2024-05-15 07:03] LABS: Partial Thromboplastin Time 61.2 Seconds (22.0-36.0)
[2024-05-15 07:11] LABS: Glucose Estimated Average 146 mg/dL (80-131); Hemoglobin A1C 6.7 % Hgb (4.8-6.0)
[2024-05-15 07:18] LABS: Anion Gap 9 (7-16); BUN/Creatinine Ratio 20 Ratio (12-20); Blood Urea Nitrogen 12 mg/dL (9-23); Calcium 9.3 mg/dL (8.3-10.6); Carbon Dioxide 27.4 mMol/L (20.0-31.0); Cardiac Risk Estimate 3.4 RATIO (3.7-5.6); Chloride 102 mMol/L (98-107); Cholesterol 171 mg/dL (132-200); Creatinine (Component) 0.6 mg/dL (0.6-1.3); Estimated Creatinine Clearance 50.3 mL/min (>60); Glucose 98 mg/dL (74-106); HDL Cholesterol 50 mg/dL (40-60); LDL Cholesterol,Calculated 104 mg/dL (0-130); Osmolality,Calculated 275 (275-295); Potassium 4.3 mMol/L (3.4-5.1); Sodium 138 mMol/L (136-145); Thyroid Stimulating Hormone 8.83 uIU/mL (0.55-4.78); Triglycerides 83 mg/dL (30-150); eGFR > 60 See Note
[2024-05-15 08:34] LABS: Troponin I 3.092 ng/mL (0.0-0.045)
[2024-05-15] MEDS: ASPIRIN EC 81 MG TABEC PO (09:58)
[2024-05-15] MEDS: INSULIN GLARGINE (Lantus) 5 UNIT/0.05 ML (PER 5 UNITS) 4 UNIT SC (09:58)
[2024-05-15 12:03] LABS: Free T4 (Free Thyroxine) 1.23 ng/dL (0.89-1.76)
--- NOTE | 2024-05-15 12:52 | ESPR_ITS ---
<Statement entered by Jose Stroud MD - 05/16/24 04:24> I have personally seen and examined the patient separately on the above date of service and discussed the plan of care with the resident. I reviewed the resident Dr. Bergman consultation progress note and agree with the resident findings and plan in the note above and have also edited the documentation to reflect my findings and plan. 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 Patient complaining of substernal chest pain or chest pressure radiating to her neck or jaw left arm which is worse with exertion over the last few days. Pain has been intermittent over the last few days but is made worse with exertion up to 8 or 10 intensity. Patient denies any Nausea vomiting or diaphoresis with chest pain. Patient denies any kind of back swelling or orthopnea or PND or palpitations at the present point of time. Denies any cough fever chills or cough or sputum production. Family history positive for diabetes mellitus and hypertension but no clear history of heart disease. Denies any Smoking alcohol drug abuse and lives with her son here in [place]. In the emergency department initial set of vitals showed blood pressure 116/89 mmHg, heart rate of 60/min, afebrile, saturation normal on room air. Labs showed hemoglobin of 15.4, WBC 7.1, platelets of 312, BUN of 12 creatinine of 0.6 sodium of 135, glucose of 169, initial troponin was 0.42 and repeat troponin was 1.08. LFTs are completely normal. EKG was performed in the emergency department showed normal sinus rhythm with occasional PVCs, left anterior fascicle block with nonspecific T wave changes with T wave flattening and inversions in 1 and aVL. Chest x-ray showed mild vascular congestion but no evidence of pneumonia. Cardiology was consulted for further evaluation of chest pain and elevated troponins. Plan: Acute coronary syndrome-NSTEMI type I > type II Patient presented with chest pain chest pressure for the past couple of days and has typical chest pain features. Troponins initially was 0.42 and the repeat was 1.08. EKG shows normal sinus rhythm with PVCs as well as nonspecific T wave inversion and flattening in lead I and aVL. Otherwise no other acute ischemic changes. Risk factors includes hypertension diabetes mellitus age. Given her elevated troponins and the risk factors with ongoing chest pain patient was recommended a left heart cardiac catheterization which will be performed on Friday. All the risk benefits and alternatives of LHC were described in detail including the risk of bleeding, heart attack, stroke and in detail. Patient agreeable for procedure and we will keep her n.p.o. Friday night and plan for procedure on Friday morning. Heparin drip for the NSTEMI type I A1c was 6.7, TSH mildly elevated at 8.83 but free T4 was normal at 1.23. Total cholesterol 171, LDL 104 and HDL 70. Echocardiogram ordered to evaluate regional wall motion abnormalities and also LV and RV function. Troponins peaked at 3.092 Aspirin, high intensity statin and beta-zaheer if blood pressure is permissible. Discussed again the as benefits and alternatives of performing the LHC with patient as well as the family as noted above Strict control of diabetes and hypertension recommended. Management of rest of the medical conditions as per primary team and other consultants. Thank you for the consult and allowing me to participate in the care of the patient. Cardiology will continue to follow. Jose Stroud M.D. Interventional Cardiology Documentation for date of: 05/15/24 Subjective Subjective Interval history: Patient examined at bedside today. On gambling monitor patient appears to be in sinus rhythm and rate in the 80s. Patient reports no chest pain or shortness of breath today she has not noticed any swelling in her legs she also denies having a headache.. She feels comfortable at this time is wondering when she can go home. Family present at bedside as well. Exam Vital Signs Temp Pulse Resp BP Pulse Ox O2 Del Method 97.3 F 65 22 H 118/66 95 Room Air 05/15/24 08:00 05/15/24 11:07 05/15/24 11:07 05/15/24 08:00 05/15/24 08:00 05/15/24 08:00 Narrative Exam General: AAOx3, NAD, indonesian speaking eldery woman HEENT: Moist mucous membranes, conjunctiva clear, EOMI, PERRLA, Cardiovascular: S1, S2, radial pulses +2 bilat, RRR Pulmonary: CTAB bilat no cough, no wheezing GI: No tenderness to light or deep palpitation, no guarding, rigidity, rebound tenderness or distension Extremities: No presence of trace or pitting edema in lower extremities bilaterally, dorsalis pedis pulses +2 bilaterally Neuro: AAOx3, no focal motor or sensory deficits in the UE or LE bilat Psych: Good judgement, thought and behavior. Cooperative Objective Labs 05/15/24 05:01 05/15/24 05:01 Labs: Laboratory Results - last 24 hr 05/14/24 05/14/24 05/14/24 13:18 15:40 19:35 WBC 7.1 RBC 5.07 Hgb 15.4 Hct 45.3 MCV 89 MCH 30.4 MCHC 34.0 RDW Std Deviation 41.9 Plt Count 312 Neut % (Auto) 76 Lymph % (Auto) 17 [place] % (Auto) 6 Eos % (Auto) 0 Baso % (Auto) 1 Neut # (Auto) 5.4 Lymph # (Auto) 1.2 [place] # (Auto) 0.5 Eos # (Auto) 0.0 Baso # (Auto) 0.0 Immature Gran # (Auto) 0.02 H Absolute Nucleated RBC 0.00 Immature Gran % 0 Nucleated RBC % 0 PT 11.9 INR 1.1 APTT 26.6 Sodium 135 L Potassium 4.8 Chloride 100 Carbon Dioxide 27.7 Anion Gap 7 BUN 12 Creatinine 0.6 Estim Creat Clear Calc 50.5 L eGFR > 60 BUN/Creatinine Ratio [address] Glu mg/dL Hemoglobin A1c Calculated Osmolality 273 L Calcium 9.6 Corrected Calcium 9.6 Phosphorus Magnesium 2.0 Total Bilirubin 0.4 AST 23 ALT 23 Alkaline Phosphatase 111 Troponin I 0.420 H* 1.084 H* D 2.764 H* D B-Natriuretic Peptide 174 H Total Protein 7.6 Albumin 4.7 Globulin 2.9 Albumin/Globulin Ratio 1.6 Triglycerides Cholesterol LDL Cholesterol, Calc HDL Cholesterol Cholesterol/HDL Ratio TSH Free T4 05/14/24 05/15/24 23:07 05:01 WBC 6.9 RBC 4.64 Hgb 14.2 Hct 41.8 MCV 90 MCH 30.6 MCHC 34.0 RDW Std Deviation 42.7 Plt Count 284 Neut % (Auto) 65 Lymph % (Auto) 26 [place] % (Auto) 7 Eos % (Auto) 1 Baso % (Auto) 1 Neut # (Auto) 4.5 Lymph # (Auto) 1.8 [place] # (Auto) 0.5 Eos # (Auto) 0.1 Baso # (Auto) 0.0 Immature Gran # (Auto) 0.01 H Absolute Nucleated RBC 0.00 Immature Gran % 0 Nucleated RBC % 0 PT INR APTT 49.2 H D 61.2 H D Sodium 138 Potassium 4.3 D Chloride 102 Carbon Dioxide 27.4 Anion Gap 9 BUN 12 Creatinine 0.6 Estim Creat Clear Calc 50.3 L eGFR > 60 BUN/Creatinine Ratio [address] Glu mg/dL 146 H Hemoglobin A1c 6.7 H Calculated Osmolality 275 Calcium 9.3 Corrected Calcium Phosphorus 4.0 Magnesium 2.0 Total Bilirubin AST ALT Alkaline Phosphatase Troponin I 3.086 H* D 3.092 H* B-Natriuretic Peptide Total Protein Albumin Globulin Albumin/Globulin Ratio Triglycerides 83 Cholesterol 171 LDL Cholesterol, Calc 104 HDL Cholesterol 50 Cholesterol/HDL Ratio 3.4 L TSH 8.83 H Free T4 1.23 Quality Measures Quality Measures none Advance care planning discussed with:: patient Assessment & Plan Assessment Current Active Medications: Generic Name Dose Route Start Last Admin Trade Name Freq PRN Reason Stop Dose Admin Acetaminophen 650 mg 05/14/24 17:13 Acetaminophen 325 Mg Tablet PO 06/13/24 17:12 Q6H PRN PAIN SCALE 1-3 (mild Hydrocodone Bitart/Acetaminophen 1 tab 05/14/24 17:13 Hydrocodone/Apap 10/325 Tab PO 05/19/24 17:12 Q4H PRN PAIN SCALE 4-6 (Moderate Aspirin 81 mg 05/15/24 09:00 05/15/24 09:58 Aspirin Ec 81 Mg Tabec PO 06/14/24 08:59 81 mg QDAY WALTER Administration Atorvastatin Calcium 40 mg 05/15/24 21:00 Atorvastatin Calcium 20 Mg Tablet PO 06/14/24 20:59 HS WALTER Heparin Sodium/Dextrose 25,000 unit in 250 mls @ 6.651 mls/hr 05/14/24 16:30 05/15/24 08:15 Heparin In D5w Ivpb IV 05/28/24 16:29 14 units/kg/hr .Q24H WALTER 7.759 mls/hr Titration Protocol 12 UNITS/KG/HR Insulin Glargine 4 unit 05/15/24 09:00 05/15/24 09:58 Insulin Glargine (Lantus) 5 Unit/0.05 Ml (Per 5 Units) SC 06/14/24 08:59 4 unit QDAY WALTER Administration Levothyroxine Sodium 75 mcg 05/15/24 06:00 05/15/24 05:34 Levothyroxine Sodium 25 Mcg Tablet PO 06/14/24 05:59 75 mcg ACBR WALTER Administration Morphine Sulfate 0.5 mg 05/14/24 17:32 Morphine Sulf Inj 10 Mg/Ml Vial IVP 05/19/24 17:31 Q4H PRN Pain 7-10 Plan Assessment The patient is a 84-year-old female with significant past medical history of diabetes mellitus type 2, 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 #NSTEMI type I Troponin 0.41 -> ~1.0 -> 2.7 -> 3.086 -> 3.092 -> 1.6 No prior history of [place] Patient has no ST changes on EKG Patient may likely have NSTEMI, has history of bilateral PEs pulmonary infarct as well Will continue to medically manage and may intervene with PCI if needed on Friday Troponins peaked at 1.6 Cardiac catherization to be done Friday Plan: ?Continue with Lipitor 40 mg ?Continue heparin drip for 48 hours ?Continue aspirin ?Cardiac cath friday ?Keep magnesium and potassium above 2 and 4 respectively #Diabetes mellitus type 2 On metformin at home A1c of 6.7 Plan: ? Primary team to manage sugars with glargine #History of hyperlipidemia Total cholesterol ~180 LDL ~103 Plan: ?Continue with Lipitor 40 mg by mouth #Hypothyroidism On home Synthroid 75 mcg TSH 8.83 Plan: ? Continue with home Synthroid 75 mcg #Mild hypoosmolar hyponatremia Above managed by primary team Patient seen and care discussed with my attending physician, Dr. Luanne Ballard, PGY-1
[2024-05-15] MEDS: INFLUENZA VIRUS QUADRIVALENT 0.5 ML SYRINGE IMi (13:34)
--- NOTE | 2024-05-15 15:37 | PD.RESPRO ---
Documentation for date of: 05/15/24 Subjective Subjective Interval history: The patient was interviewed and examined at the bedside this morning. She reported that she has been doing well. She denied any chest pain, or pressure over her chest. She denied any lightheadedness, sore throat, abdominal pain, any lower leg swelling. She denied any nausea or vomiting, fever or chills. Exam Vital Signs Temp Pulse Resp BP Pulse Ox O2 Del Method 97.0 F 90 20 116/74 95 Room Air 05/15/24 12:00 05/15/24 12:00 05/15/24 12:05/15/24 12:00 05/15/24 12:00 05/15/24 12:00 Narrative Exam General: Elderly, cooperative female, no acute distress, Alert and Oriented x 3 HEENT: Moist mucous membranes, oropharynx clear Neck: Supple, No masses, No JVD CVS: S1S2 Regular rate and rhythm, No murmurs, rubs or gallops Lungs: Clear to auscultation with no accessory use, no wheeze no rhonchi Abd: Soft, NT/ND, +BS, no organomegaly Ext: No edema, warm and well perfused Skin: No rash Psych: Appropriate mood and affect Objective Labs 05/16/24 05:35 05/16/24 05:35 Labs: Laboratory Results - last 24 hr 05/14/24 05/14/24 05/14/24 15:40 19:35 23:07 WBC RBC Hgb Hct MCV MCH MCHC RDW Std Deviation Plt Count Neut % (Auto) Lymph % (Auto) [place] % (Auto) Eos % (Auto) Baso % (Auto) Neut # (Auto) Lymph # (Auto) [place] # (Auto) Eos # (Auto) Baso # (Auto) Immature Gran # (Auto) Absolute Nucleated RBC Immature Gran % Nucleated RBC % APTT 49.2 H D Sodium Potassium Chloride Carbon Dioxide Anion Gap BUN Creatinine Estim Creat Clear Calc eGFR BUN/Creatinine Ratio Glucose Estimated Ave Glu mg/dL Hemoglobin A1c Calculated Osmolality Calcium Phosphorus Magnesium Troponin I 1.084 H* D 2.764 H* D 3.086 H* D Triglycerides Cholesterol LDL Cholesterol, Calc HDL Cholesterol Cholesterol/HDL Ratio TSH Free T4 05/15/24 05/15/24 05:01 14:45 WBC 6.9 RBC 4.64 Hgb 14.2 Hct 41.8 MCV 90 MCH 30.6 MCHC 34.0 RDW Std Deviation 42.7 Plt Count 284 Neut % (Auto) 65 Lymph % (Auto) 26 [place] % (Auto) 7 Eos % (Auto) 1 Baso % (Auto) 1 Neut # (Auto) 4.5 Lymph # (Auto) 1.8 [place] # (Auto) 0.5 Eos # (Auto) 0.1 Baso # (Auto) 0.0 Immature Gran # (Auto) 0.01 H Absolute Nucleated RBC 0.00 Immature Gran % 0 Nucleated RBC % 0 APTT 61.2 H D Sodium 138 Potassium 4.3 D Chloride 102 Carbon Dioxide 27.4 Anion Gap 9 BUN 12 Creatinine 0.6 Estim Creat Clear Calc 50.3 L eGFR > 60 BUN/Creatinine Ratio [address] Glu mg/dL 146 H Hemoglobin A1c 6.7 H Calculated Osmolality 275 Calcium 9.3 Phosphorus 4.0 Magnesium 2.0 Troponin I 3.092 H* 1.800 H* D Triglycerides 83 Cholesterol 171 LDL Cholesterol, Calc 104 HDL Cholesterol 50 Cholesterol/HDL Ratio 3.4 L TSH 8.83 H Free T4 1.23 Quality Measures Quality Measures none Advance care planning discussed with:: patient and child Assessment & Plan Assessment Current Active Medications: Generic Name Dose Route Start Last Admin Trade Name Freq PRN Reason Stop Dose Admin Acetaminophen 650 mg 05/14/24 17:13 Acetaminophen 325 Mg Tablet PO 06/13/24 17:12 Q6H PRN PAIN SCALE 1-3 (mild Hydrocodone Bitart/Acetaminophen 1 tab 05/14/24 17:13 Hydrocodone/Apap 10/325 Tab PO 05/19/24 17:12 Q4H PRN PAIN SCALE 4-6 (Moderate Aspirin 81 mg 05/15/24 09:00 05/15/24 09:58 Aspirin Ec 81 Mg Tabec PO 06/14/24 08:59 81 mg QDAY WALTER Administration Atorvastatin Calcium 40 mg 05/15/24 21:00 Atorvastatin Calcium 20 Mg Tablet PO 06/14/24 20:59 HS WALTER Heparin Sodium/Dextrose 25,000 unit in 250 mls @ 6.651 mls/hr 05/14/24 16:30 05/15/24 08:15 Heparin In D5w Ivpb IV 05/28/24 16:29 14 units/kg/hr .Q24H WALTER 7.759 mls/hr Titration Protocol 12 UNITS/KG/HR Insulin Glargine 4 unit 05/15/24 09:00 05/15/24 09:58 Insulin Glargine (Lantus) 5 Unit/0.05 Ml (Per 5 Units) SC 06/14/24 08:59 4 unit QDAY WALTER Administration Levothyroxine Sodium 75 mcg 05/15/24 06:00 05/15/24 05:34 Levothyroxine Sodium 25 Mcg Tablet PO 06/14/24 05:59 75 mcg ACBR WALTER Administration Morphine Sulfate 0.5 mg 05/14/24 17:32 Morphine Sulf Inj 10 Mg/Ml Vial IVP 05/19/24 17:31 Q4H PRN Pain 7-10 Plan The patient is a 84-year-old female with significant past medical history of diabetes mellitus type 2, 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 # Acute chest pain 2/ # NSTEMI DDx: NSTEMI, as no significant EKG changes The patient reported the pain to be retrosternal, radiating to bilateral shoulder and back of neck. She did not take any medications until she presented to ED, as she was expecting the pain to go on its own. She was given sublingual nitro in the ED after which her pain improved. Troponin 0.420 that trended up to 1.084 >>3.092>>1.800 Lipid Panel: LDL 104, HDL 50, TSH 8.83, T4 1.23 Received aspirin 325 Mg, nitro paste and nitro type -Admitted to telemetry unit -Continue on heparin drip -Daily aspirin 81 Mg -Atorvastatin 40 Mg daily -Troponin downtrended. -A.m. labs -Access Registrar Dr. Stroud consulted, recommendations #Diabetes mellitus type 2 Patient is on home metformin 500 Mg twice daily A1c 6.7 -On insulin lispro SSI AC with fingerstick blood sugar -Monitor blood sugar #Hypothyroidism Patient is on home levothyroxine 75 Mcg in the morning daily TSH 8.83, T4 1.23 -Started on home levothyroxine dose 75 mcg in the morning #Mild hypoosmolar hyponatremia, improved Etiology currently unknown DDx: Low oral intake in the setting of chest pain for past 5 days -Monitor daily BMP Dispo: Patient admitted to telemetry unit for further management of acute chest pain Diet: Cardiac diet DVT prophylaxis: Currently on heparin drip CODE STATUS: Full code The patient's management plan was discussed with my attending physician MD Lester See MD, PGY2 Attending Provider Attestation/Addendum I have examined the patient, reviewed labs and imaging findings, discussed the case with the resident(s), and reviewed entered orders. I agree with the plan of care as outlined in this note, with these additional summaries/recommendations: Patient is a 84-year-old female with a medical history of hypothyroidism, diabetes mellitus type 2, osteoarthritis, hyperlipidemia, and history of DVT who presented to [facility] emergency department on 05/14/2024 with chief complaint of chest pain. Patient was found to have elevated troponins and hospitalist team consulted for continuation of care. # NSTEMI type I Presented with chest pain radiating to the neck Given typical features and patient's age this is concerning for ACS or plaque rupture MJ score: 4 points indicating 20% risk at 14 days of all cause mortality Melody score: 122 points indicating a percent probability of from admission to 6 months Troponin elevated to 1.084 EKG: Sinus rhythm, rate 68, nonspecific ST changes although no ST elevation Work-up: Telemetry, troponin until downtrending, serial EKGs, TTE Treatment: Titrate O2 as needed for symptoms Antiplatelet: Status post aspirin 325 mg p.o. x 1 in ED. Continue aspirin 81 mg p.o. daily. Appreciate cardio recs on Plavix Anticoagulation: Heparin gtt. Plaque stabilization: Atorvastatin 40 mg p.o. daily Okay to give IV morphine as needed for chest pain or nitroglycerin as needed if blood pressure can tolerate Plan: Cardiology consulted with plans for cardiac catheterization. continue above management. # Diabetes mellitus type 2 A1C 6.7%. Continue insulin sliding scale with Accu-Cheks. Target blood sugar of 140-180 while hospitalized. # Hypothyroidism TSH 8.83, Free T4 pending. Continue home levothyroxine # Dyslipidemia Plan: Continue atorvastatin Dr. Astudillo
[2024-05-15 16:38] LABS: Partial Thromboplastin Time 50.5 Seconds (22.0-36.0)
[2024-05-15] MEDS: ATORVASTATIN CALCIUM 20 MG TABLET 40 MG PO (20:19)
[2024-05-16] VITALS (8 sets, daily range): BP systolic 115–127; BP diastolic 56–77; PULSE 62–78; RESP 15–94; TEMP 36.4–37.2; O2SAT 90–95; BMI 25.9
[2024-05-16 01:13] LABS: Partial Thromboplastin Time 53.2 Seconds (22.0-36.0)
[2024-05-16] MEDS: Heparin/D5w 25K 250 ML Ivpb 25,000 UNIT/250 ML BAG 7.759 UNIT IV (01:18)
[2024-05-16] MEDS: LEVOTHYROXINE SODIUM 25 MCG TABLET 75 MCG PO (05:35)
[2024-05-16 06:05] LABS: Basophils % (Auto) 1 % (0-2.5); Eosinophils # (Auto) 0.1 Thou/mm3 (0.0-0.5); Eosinophils % (Auto) 2 % (0-10); Hematocrit 38.7 % (36.0-46.0); Hemoglobin 13.3 g/dL (12.0-16.0); Immature Granulocytes % (Auto) 0 % (0-0); Immature Granulocytes Auto 0.01 Thou/mm3 (0.00-0.00); Lymphocytes # (Auto) 1.7 Thou/mm3 (1.0-4.8); Lymphocytes % (Auto) 29 % (10-50); Mean Corpuscular HGB Conc 34.4 g/dl (31.0-37.0); Mean Corpuscular Hemoglobin 30.8 pg (25.0-35.0); Mean Corpuscular Volume 90 fL (80-100); Monocytes # (Auto) 0.5 Thou/mm3 (0.0-0.8); Monocytes % (Auto) 8 % (0-12); Neutrophils # (Auto) 3.5 Thou/mm3 (1.8-7.7); Neutrophils % (Auto) 60 % (37-80); Nucleated Red Blood Cell % 0 /100 WBC (0); Platelet Count 257 Thou/mm3 (140-440); RDW Standard Deviation 42.1 fL (36.4-46.3); Red Blood Count 4.32 Miln/mm3 (4.00-5.20); White Blood Count 5.7 Thou/mm3 (3.6-11.0)
[2024-05-16 06:29] LABS: INR 1.2 (0.9-1.3); Partial Thromboplastin Time 63.2 Seconds (22.0-36.0); Prothrombin Time 12.5 Seconds (9.0-12.2)
[2024-05-16 06:44] LABS: Anion Gap 9 (7-16); BUN/Creatinine Ratio 21 Ratio (12-20); Blood Urea Nitrogen 15 mg/dL (9-23); Calcium 8.9 mg/dL (8.3-10.6); Carbon Dioxide 24.7 mMol/L (20.0-31.0); Chloride 102 mMol/L (98-107); Creatinine (Component) 0.7 mg/dL (0.6-1.3); Estimated Creatinine Clearance 44.1 mL/min (>60); Glucose 110 mg/dL (74-106); Osmolality,Calculated 273 (275-295); Potassium 3.9 mMol/L (3.4-5.1); Sodium 136 mMol/L (136-145); eGFR > 60 See Note
[2024-05-16] MEDS: INSULIN GLARGINE (Lantus) 5 UNIT/0.05 ML (PER 5 UNITS) 4 UNIT SC (08:54)
[2024-05-16] MEDS: ASPIRIN EC 81 MG TABEC PO (08:54)
[2024-05-16] MEDS: METOPROLOL SUCCINATE XL 25 MG TABCR PO (10:19)
--- NOTE | 2024-05-16 12:40 | PD.RESPRO ---
Documentation for date of: 05/16/24 Subjective Subjective Interval history: 04/2025: Patient examined at bedside today. Still reviewed, patient heart rate to be in the 70s and 80s no overnight events. Patient reports she is doing well Zaxby's any chest pain shortness of breath or headache. Family present at bedside. Patient still agreeable with doing cardiac catheterization tomorrow risk and benefits were discussed with patient again and she is still agreeable. She does not have any questions regards to the procedure. Will continue with heparin drip and will have it stopped upon Safety Admin Assistant call. BUN/creatinine 15 and 0.7 respectively. Will continue current management of metoprolol 25 XL, aspirin and Lipitor 40 mg. Catheterization tomorrow to be done by Dr. Stroud around 7:30 AM Exam Vital Signs Temp Pulse Resp BP Pulse Ox O2 Del Method 97.5 F 73 16 118/64 95 Room Air 05/16/24 08:00 05/16/24 10:19 05/16/24 08:00 05/16/24 10:19 05/16/24 08:00 05/16/24 08:00 Narrative Exam General: AAOx3, NAD, bolivian speaking eldery woman HEENT: Moist mucous membranes, conjunctiva clear, EOMI, PERRLA, Cardiovascular: S1, S2, radial pulses +2 bilat, RRR Pulmonary: CTAB bilat no cough, no wheezing GI: No tenderness to light or deep palpitation, no guarding, rigidity, rebound tenderness or distension Extremities: No presence of trace or pitting edema in lower extremities bilaterally, dorsalis pedis pulses +2 bilaterally Neuro: AAOx3, no focal motor or sensory deficits in the UE or LE bilat Psych: Good judgement, thought and behavior. Cooperative Objective Labs 05/16/24 05:35 05/16/24 05:35 Labs: Laboratory Results - last 24 hr 05/15/24 05/15/24 05/16/24 14:45 23:41 05:35 WBC 5.7 RBC 4.32 Hgb 13.3 Hct 38.7 MCV 90 MCH 30.8 MCHC 34.4 RDW Std Deviation 42.1 Plt Count 257 Neut % (Auto) 60 Lymph % (Auto) 29 [place] % (Auto) 8 Eos % (Auto) 2 Baso % (Auto) 1 Neut # (Auto) 3.5 Lymph # (Auto) 1.7 [place] # (Auto) 0.5 Eos # (Auto) 0.1 Baso # (Auto) 0.0 Immature Gran # (Auto) 0.01 H Absolute Nucleated RBC 0.00 Immature Gran % 0 Nucleated RBC % 0 PT 12.5 H INR 1.2 APTT 50.5 H D 53.2 H 63.2 H D Sodium 136 Potassium 3.9 Chloride 102 Carbon Dioxide 24.7 Anion Gap 9 BUN 15 Creatinine 0.7 Estim Creat Clear Calc 44.1 L eGFR > 60 BUN/Creatinine Ratio 21 H Glucose 110 H Calculated Osmolality 273 L Calcium 8.9 Phosphorus 4.0 Magnesium 2.0 Troponin I 1.800 H* D Quality Measures Quality Measures none Advance care planning discussed with:: patient Assessment & Plan Assessment Current Active Medications: Generic Name Dose Route Start Last Admin Trade Name Freq PRN Reason Stop Dose Admin Acetaminophen 650 mg 05/14/24 17:13 Acetaminophen 325 Mg Tablet PO 06/13/24 17:12 Q6H PRN PAIN SCALE 1-3 (mild Hydrocodone Bitart/Acetaminophen 1 tab 05/14/24 17:13 Hydrocodone/Apap 10/325 Tab PO 05/19/24 17:12 Q4H PRN PAIN SCALE 4-6 (Moderate Aspirin 81 mg 05/15/24 09:00 05/16/24 08:54 Aspirin Ec 81 Mg Tabec PO 06/14/24 08:59 81 mg QDAY WALTER Administration Atorvastatin Calcium 40 mg 05/15/24 21:00 05/15/24 20:19 Atorvastatin Calcium 20 Mg Tablet PO 06/14/24 20:59 40 mg HS WALTER Administration Heparin Sodium/Dextrose 25,000 unit in 250 mls @ 6.651 mls/hr 05/14/24 16:30 05/16/24 01:18 Heparin In D5w Ivpb IV 05/28/24 16:29 14 units/kg/hr .Q24H WALTER 7.759 mls/hr Administration Protocol 12 UNITS/KG/HR Insulin Glargine 4 unit 05/15/24 09:00 05/16/24 08:54 Insulin Glargine (Lantus) 5 Unit/0.05 Ml (Per 5 Units) SC 06/14/24 08:59 4 unit QDAY WALTER Administration Levothyroxine Sodium 75 mcg 05/15/24 06:00 05/16/24 05:35 Levothyroxine Sodium 25 Mcg Tablet PO 06/14/24 05:59 75 mcg ACBR WALTER Administration Metoprolol Succinate 25 mg 05/16/24 10:15 05/16/24 10:19 Metoprolol Succinate Xl 25 Mg Tabcr PO 06/15/24 10:14 25 mg QDAY WALTER Administration Morphine Sulfate 0.5 mg 05/14/24 17:32 Morphine Sulf Inj 10 Mg/Ml Vial IVP 05/19/24 17:31 Q4H PRN Pain 7-10 Plan Assessment The patient is a 84-year-old female with significant past medical history of diabetes mellitus type 2, 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 #NSTEMI type I Troponin 0.41 -> ~1.0 -> 2.7 -> 3.086 -> 3.092 -> 1.6 No prior history of [place] Patient has no ST changes on EKG Patient may likely have NSTEMI, has history of bilateral PEs pulmonary infarct as well Will continue to medically manage and may intervene with PCI if needed on Friday Troponins peaked at 1.6 Cardiac catherization to be done tomorrow around 7:30 AM Plan: ?Continue with Lipitor 40 mg ?Continue heparin drip, to be stopped upon Safety Admin Assistant call tomorrow ?Continue aspirin ? N.p.o. at midnight ?Keep magnesium and potassium above 2 and 4 respectively #Diabetes mellitus type 2 On metformin at home A1c of 6.7 Plan: ? Primary team to manage sugars with glargine #History of hyperlipidemia Total cholesterol ~180 LDL ~103 Plan: ?Continue with Lipitor 40 mg by mouth #Hypothyroidism On home Synthroid 75 mcg TSH 8.83 Plan: ? Continue with home Synthroid 75 mcg #Mild hypoosmolar hyponatremia Above managed by primary team Patient seen and care discussed with my attending physician, Dr. Luanne Ballard, PGY-1 Attending Provider Attestation/Addendum I reviewed the resident Dr. Bergman consultation progress note and agree with the resident findings and plan in the note above and have also edited the documentation to reflect my findings and plan. Jose Srtoud M.D. Interventional Cardiology
--- NOTE | 2024-05-16 13:26 | PD.RESPRO ---
Documentation for date of: 05/16/24 Subjective Subjective Interval history: Patient was examined bedside this morning, she was comfortably sleeping in bed. Denies any new chest pain. She is going for coronary cath tomorrow by Dr. Wesley moptavares after midnight Exam Vital Signs Temp Pulse Resp BP Pulse Ox O2 Del Method 97.5 F 73 16 118/64 95 Room Air 05/16/24 08:00 05/16/24 10:19 05/16/24 08:00 05/16/24 10:19 05/16/24 08:00 05/16/24 08:00 Narrative Exam GENERAL: Comfortable adult seen resting comfortably in hospital bed, no acute distress VITALS: All vitals were reviewed and the pulse ox is 98% on room air HEENT: Normocephalic, atraumatic. Pupils are equal and reactive. Oral mucosa is moist. NECK: Supple, nontender, no JVD CHEST: Symmetrical, atraumatic and with equal expansion ,Nontender on palpation CARDIOVASCULAR: Heart regular rhythm & rate. S1/S2. no murmur or gallop rub or extra beats. LUNGS: Clear to auscultation bilaterally with symmetrical chest rise. No laboring tachypnea or wheezing. No intercostal subcostal retraction. No rales and no rhonchi. ABDOMEN: Soft, flat, nontender to palpation, no guarding or rebound tenderness. Active and normal bowel sounds. EXTREMITIES:Moves all 4 extremities,No B/L LE edema. SKIN: Warm and dry, no jaundice or rashes noted. NEURO: Patient is AO x 3, Cranial nerves II through XII grossly intact. There is no focal neurologic deficits noted. PSYCHIATRIC: Patient is in normal mood, cooperative, no SI or HI or hallucinations. Objective Labs 05/17/24 05:40 05/17/24 05:40 Labs: Laboratory Results - last 24 hr 05/15/24 05/15/24 05/16/24 14:45 23:41 05:35 WBC 5.7 RBC 4.32 Hgb 13.3 Hct 38.7 MCV 90 MCH 30.8 MCHC 34.4 RDW Std Deviation 42.1 Plt Count 257 Neut % (Auto) 60 Lymph % (Auto) 29 [place] % (Auto) 8 Eos % (Auto) 2 Baso % (Auto) 1 Neut # (Auto) 3.5 Lymph # (Auto) 1.7 [place] # (Auto) 0.5 Eos # (Auto) 0.1 Baso # (Auto) 0.0 Immature Gran # (Auto) 0.01 H Absolute Nucleated RBC 0.00 Immature Gran % 0 Nucleated RBC % 0 PT 12.5 H INR 1.2 APTT 50.5 H D 53.2 H 63.2 H D Sodium 136 Potassium 3.9 Chloride 102 Carbon Dioxide 24.7 Anion Gap 9 BUN 15 Creatinine 0.7 Estim Creat Clear Calc 44.1 L eGFR > 60 BUN/Creatinine Ratio 21 H Glucose 110 H Calculated Osmolality 273 L Calcium 8.9 Phosphorus 4.0 Magnesium 2.0 Troponin I 1.800 H* D Quality Measures Quality Measures none Advance care planning discussed with:: patient Assessment & Plan Assessment Current Active Medications: Generic Name Dose Route Start Last Admin Trade Name Freq PRN Reason Stop Dose Admin Acetaminophen 650 mg 05/14/24 17:13 Acetaminophen 325 Mg Tablet PO 06/13/24 17:12 Q6H PRN PAIN SCALE 1-3 (mild Hydrocodone Bitart/Acetaminophen 1 tab 05/14/24 17:13 Hydrocodone/Apap 10/325 Tab PO 05/19/24 17:12 Q4H PRN PAIN SCALE 4-6 (Moderate Aspirin 81 mg 05/15/24 09:00 05/16/24 08:54 Aspirin Ec 81 Mg Tabec PO 06/14/24 08:59 81 mg QDAY WALTER Administration Atorvastatin Calcium 40 mg 05/15/24 21:00 05/15/24 20:19 Atorvastatin Calcium 20 Mg Tablet PO 06/14/24 20:59 40 mg HS WALTER Administration Heparin Sodium/Dextrose 25,000 unit in 250 mls @ 6.651 mls/hr 05/14/24 16:30 05/16/24 01:18 Heparin In D5w Ivpb IV 05/28/24 16:29 14 units/kg/hr .Q24H WALTER 7.759 mls/hr Administration Protocol 12 UNITS/KG/HR Insulin Glargine 4 unit 05/15/24 09:00 05/16/24 08:54 Insulin Glargine (Lantus) 5 Unit/0.05 Ml (Per 5 Units) SC 06/14/24 08:59 4 unit QDAY WALTER Administration Levothyroxine Sodium 75 mcg 05/15/24 06:00 05/16/24 05:35 Levothyroxine Sodium 25 Mcg Tablet PO 06/14/24 05:59 75 mcg ACBR WALTER Administration Metoprolol Succinate 25 mg 05/16/24 10:15 05/16/24 10:19 Metoprolol Succinate Xl 25 Mg Tabcr PO 06/15/24 10:14 25 mg QDAY WALTER Administration Morphine Sulfate 0.5 mg 05/14/24 17:32 Morphine Sulf Inj 10 Mg/Ml Vial IVP 05/19/24 17:31 Q4H PRN Pain 7-10 Plan Patient is a 84-year-old female with a medical history of hypothyroidism, diabetes mellitus type 2, osteoarthritis, hyperlipidemia, and history of DVT who presented to [facility] emergency department on 05/14/2024 with chief complaint of chest pain. Patient was found to have elevated troponins and hospitalist team consulted for continuation of care. # NSTEMI type I -Presented with chest pain radiating to the neck -Given typical features and patient's age this is concerning for ACS or plaque rupture -MJ score: 4 points indicating 20% risk at 14 days of all cause mortality -Melody score: 122 points indicating a percent probability of from admission to 6 months -Troponin elevated to 3.08 down trended to 1.084 -EKG: Sinus rhythm, rate 68, nonspecific ST changes although no ST elevation -Titrate O2 as needed for symptoms -Antiplatelet: Status post aspirin 325 mg p.o. x 1 in ED. Continue aspirin 81 mg p.o. daily. pending plavix reccs for plavix -Anticoagulation: Heparin gtt. -Plaque stabilization: Atorvastatin 40 mg p.o. daily -Okay to give IV morphine as needed for chest pain or nitroglycerin as needed if blood pressure can tolerate -NPO after midnight for cardiac cath tomorrow #Diabetes mellitus type 2 Patient is on home metformin 500 Mg twice daily held in hospial A1c 6.7 -On insulin lispro SSI AC with fingerstick blood sugar -Monitor blood sugar #Hypothyroidism Patient is on home levothyroxine 75 Mcg in the morning daily TSH 8.83, T4 1.23 Continue home levothyroxine dose 75 mcg in the morning #Mild hypoosmolar hyponatremia, resolved Dispo: Patient admitted to telemetry unit for further management of NSTEMI on heparin drip , cath tomorrow morning Diet: Cardiac diet DVT prophylaxis: Currently on heparin drip CODE STATUS: Full code Discussed the patient with my attending Dr Baudilio Rider MD,PGY-3 Attending Provider Attestation/Addendum I have examined the patient, reviewed labs and imaging findings, discussed the case with the resident(s), and reviewed entered orders. I agree with the plan of care as outlined in this note, with these additional summaries/recommendations: Patient is a 84-year-old female with a medical history of hypothyroidism, diabetes mellitus type 2, osteoarthritis, hyperlipidemia, and history of DVT who presented to [facility] emergency department on 05/14/2024 with chief complaint of chest pain. Patient was found to have elevated troponins and hospitalist team consulted for continuation of care. # NSTEMI type I Presented with chest pain radiating to the neck Given typical features and patient's age this is concerning for ACS or plaque rupture MJ score: 4 points indicating 20% risk at 14 days of all cause mortality Melody score: 122 points indicating a percent probability of from admission to 6 months Troponin elevated to 1.084 EKG: Sinus rhythm, rate 68, nonspecific ST changes although no ST elevation Work-up: Telemetry, troponin until downtrending, serial EKGs, TTE Treatment: Titrate O2 as needed for symptoms Antiplatelet: Status post aspirin 325 mg p.o. x 1 in ED. Continue aspirin 81 mg p.o. daily. Anticoagulation: Heparin gtt. Plaque stabilization: Atorvastatin 40 mg p.o. daily Okay to give IV morphine as needed for chest pain or nitroglycerin as needed if blood pressure can tolerate Plan: Cardiology consulted with plans for cardiac catheterization tomorrow 05/17. NPO aftermidnight. Start Metoprolol and continue above management. # Diabetes mellitus type 2 A1C 6.7%. Continue insulin sliding scale with Accu-Cheks. Target blood sugar of 140-180 while hospitalized. # Hypothyroidism TSH 8.83, Free T4 pending. Continue home levothyroxine # Dyslipidemia Plan: Continue atorvastatin Dr. Astudillo
[2024-05-16] MEDS: MORPHINE SULF INJ 10 MG/ML VIAL IVP (16:59)
[2024-05-16] MEDS: ATORVASTATIN CALCIUM 20 MG TABLET 40 MG PO (20:14)
[2024-05-17] VITALS (23 sets, daily range): BP systolic 110–155; BP diastolic 51–82; PULSE 64–79; RESP 11–97; TEMP 36.2–37; O2SAT 92–99; BMI 25.0
[2024-05-17] MEDS: LEVOTHYROXINE SODIUM 25 MCG TABLET 75 MCG PO (05:33)
[2024-05-17 06:10] LABS: Basophils # (Auto) 0.1 Thou/mm3 (0.0-0.2); Basophils % (Auto) 1 % (0-2.5); Eosinophils # (Auto) 0.1 Thou/mm3 (0.0-0.5); Eosinophils % (Auto) 1 % (0-10); Hematocrit 38.6 % (36.0-46.0); Hemoglobin 13.1 g/dL (12.0-16.0); Immature Granulocytes % (Auto) 0 % (0-0); Immature Granulocytes Auto 0.03 Thou/mm3 (0.00-0.00); Lymphocytes # (Auto) 1.5 Thou/mm3 (1.0-4.8); Lymphocytes % (Auto) 19 % (10-50); Mean Corpuscular HGB Conc 33.9 g/dl (31.0-37.0); Mean Corpuscular Hemoglobin 30.7 pg (25.0-35.0); Mean Corpuscular Volume 90 fL (80-100); Monocytes # (Auto) 0.7 Thou/mm3 (0.0-0.8); Monocytes % (Auto) 9 % (0-12); Neutrophils # (Auto) 5.5 Thou/mm3 (1.8-7.7); Neutrophils % (Auto) 70 % (37-80); Nucleated Red Blood Cell % 0 /100 WBC (0); Platelet Count 244 Thou/mm3 (140-440); RDW Standard Deviation 43.4 fL (36.4-46.3); Red Blood Count 4.27 Miln/mm3 (4.00-5.20); White Blood Count 7.8 Thou/mm3 (3.6-11.0)
[2024-05-17 06:30] LABS: Anion Gap 7 (7-16); BUN/Creatinine Ratio 20 Ratio (12-20); Blood Urea Nitrogen 12 mg/dL (9-23); Calcium 9.1 mg/dL (8.3-10.6); Chloride 104 mMol/L (98-107); Creatinine (Component) 0.6 mg/dL (0.6-1.3); Estimated Creatinine Clearance 50.6 mL/min (>60); Glucose 97 mg/dL (74-106); Osmolality,Calculated 275 (275-295); Phosphorous 3.7 mg/dL (2.4-5.1); Potassium 3.8 mMol/L (3.4-5.1); Sodium 138 mMol/L (136-145); eGFR > 60 See Note
[2024-05-17 06:39] LABS: Partial Thromboplastin Time 59.3 Seconds (22.0-36.0)
[2024-05-17] MEDS: METOPROLOL SUCCINATE XL 25 MG TABCR PO (08:29)
[2024-05-17] MEDS: ASPIRIN EC 81 MG TABEC PO (08:30)
--- NOTE | 2024-05-17 09:14 | ESPR_ITS ---
Documentation for date of: 05/17/24 Subjective Subjective Interval history: 04/2025: Patient examined at bedside today. Still reviewed, patient heart rate to be in the 70s and 80s no overnight events. Patient reports she is doing well Zaxby's any chest pain shortness of breath or headache. Family present at bedside. Patient still agreeable with doing cardiac catheterization tomorrow risk and benefits were discussed with patient again and she is still agreeable. She does not have any questions regards to the procedure. Will continue with heparin drip and will have it stopped upon Sifting Operator call. BUN/creatinine 15 and 0.7 respectively. Will continue current management of metoprolol 25 XL, aspirin and Lipitor 40 mg. Catheterization tomorrow to be done by Dr. Stroud around 7:30 AM 05/17/2024: Pt examined at bedside today. Telemetry reviewed, no overnight events on tele. Pt to get cardiac catherization today, will follow up with pt throughout the day to see how she tolerates procedure. BUN/Cr 12 and 0.6 respectively, potassium 3.8 and 2.0. Exam Vital Signs Temp Pulse Resp BP Pulse Ox O2 Del Method 98.6 F 69 19 120/64 96 Room Air 05/17/24 08:25 05/17/24 08:29 05/17/24 08:25 05/17/24 08:29 05/17/24 08:25 05/17/24 08:25 Narrative Exam General: AAOx3, NAD, colombian speaking eldery woman HEENT: Moist mucous membranes, conjunctiva clear, EOMI, PERRLA, Cardiovascular: S1, S2, radial pulses +2 bilat, RRR Pulmonary: CTAB bilat no cough, no wheezing GI: No tenderness to light or deep palpitation, no guarding, rigidity, rebound tenderness or distension Extremities: No presence of trace or pitting edema in lower extremities bilaterally, dorsalis pedis pulses +2 bilaterally Neuro: AAOx3, no focal motor or sensory deficits in the UE or LE bilat Psych: Good judgement, thought and behavior. Cooperative Objective Labs 05/17/24 05:40 05/17/24 05:40 Labs: Laboratory Results - last 24 hr 05/17/24 05:40 WBC 7.8 RBC 4.27 Hgb 13.1 Hct 38.6 MCV 90 MCH 30.7 MCHC 33.9 RDW Std Deviation 43.4 Plt Count 244 Neut % (Auto) 70 Lymph % (Auto) 19 [place] % (Auto) 9 Eos % (Auto) 1 Baso % (Auto) 1 Neut # (Auto) 5.5 Lymph # (Auto) 1.5 [place] # (Auto) 0.7 Eos # (Auto) 0.1 Baso # (Auto) 0.1 Immature Gran # (Auto) 0.03 H Absolute Nucleated RBC 0.00 Immature Gran % 0 Nucleated RBC % 0 APTT 59.3 H Sodium 138 Potassium 3.8 Chloride 104 Carbon Dioxide 27.0 Anion Gap 7 BUN 12 Creatinine 0.6 Estim Creat Clear Calc 50.6 L eGFR > 60 BUN/Creatinine Ratio 20 Glucose 97 Calculated Osmolality 275 Calcium 9.1 Phosphorus 3.7 Magnesium 2.0 Quality Measures Quality Measures none Advance care planning discussed with:: patient Assessment & Plan Assessment Current Active Medications: Generic Name Dose Route Start Last Admin Trade Name Freq PRN Reason Stop Dose Admin Acetaminophen 650 mg 05/14/24 17:13 Acetaminophen 325 Mg Tablet PO 06/13/24 17:12 Q6H PRN PAIN SCALE 1-3 (mild Hydrocodone Bitart/Acetaminophen 1 tab 05/14/24 17:13 Hydrocodone/Apap 10/325 Tab PO 05/19/24 17:12 Q4H PRN PAIN SCALE 4-6 (Moderate Aspirin 81 mg 05/15/24 09:00 05/17/24 08:30 Aspirin Ec 81 Mg Tabec PO 06/14/24 08:59 81 mg QDAY WALTER Administration Atorvastatin Calcium 40 mg 05/15/24 21:00 05/16/24 20:14 Atorvastatin Calcium 20 Mg Tablet PO 06/14/24 20:59 40 mg HS WALTER Administration Heparin Sodium/Dextrose 25,000 unit in 250 mls @ 6.651 mls/hr 05/14/24 16:30 05/16/24 01:18 Heparin In D5w Ivpb IV 05/28/24 16:29 14 units/kg/hr .Q24H WALTER 7.759 mls/hr Administration Protocol 12 UNITS/KG/HR Potassium Chloride 10 meq in 100 mls @ 100 mls/hr 05/17/24 07:56 Kcl Ivpb IV 05/17/24 09:55 Q1H WALTER Insulin Glargine 4 unit 05/15/24 09:00 05/17/24 08:31 Insulin Glargine (Lantus) 5 Unit/0.05 Ml (Per 5 Units) SC 06/14/24 08:59 Not Given QDAY WALTER Levothyroxine Sodium 75 mcg 05/15/24 06:00 05/17/24 05:33 Levothyroxine Sodium 25 Mcg Tablet PO 06/14/24 05:59 75 mcg ACBR WALTER Administration Metoprolol Succinate 25 mg 05/16/24 10:15 05/17/24 08:29 Metoprolol Succinate Xl 25 Mg Tabcr PO 06/15/24 10:14 25 mg QDAY WALTER Administration Morphine Sulfate 0.5 mg 05/14/24 17:32 05/16/24 16:59 Morphine Sulf Inj 10 Mg/Ml Vial IVP 05/19/24 17:31 0.5 mg Q4H PRN Administration Pain 7-10 Plan Assessment The patient is a 84-year-old female with significant past medical history of diabetes mellitus type 2, 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 #NSTEMI type I Troponin 0.41 -> ~1.0 -> 2.7 -> 3.086 -> 3.092 -> 1.6 No prior history of AR Patient has no ST changes on EKG Patient may likely have NSTEMI, has history of bilateral PEs pulmonary infarct as well Will continue to medically manage and may intervene with PCI if needed on Friday Troponins peaked at 1.6 Cardiac catherization today, will follow up with pt Plan: ?Continue with Lipitor 40 mg ?L heart Cardiac Cath today ?Continue aspirin ?Keep magnesium and potassium above 2 and 4 respectively #Diabetes mellitus type 2 On metformin at home A1c of 6.7 Plan: ? Primary team to manage sugars with glargine #History of hyperlipidemia Total cholesterol ~180 LDL ~103 Plan: ?Continue with Lipitor 40 mg by mouth #Hypothyroidism On home Synthroid 75 mcg TSH 8.83 Plan: ? Continue with home Synthroid 75 mcg #Mild hypoosmolar hyponatremia Above managed by primary team Patient seen and care discussed with my attending physician, Dr. Luanne Ballard, PGY-1 Attending Provider Attestation/Addendum I have personally seen and examined the patient separately on the above date of service and discussed the plan of care with the resident. I reviewed the resident Dr. Bergman consultation progress note and agree with the resident findings and plan in the note above and have also edited the documentation to reflect my findings and plan. Jose Stroud M.D. Interventional Cardiology
--- NOTE | 2024-05-17 09:20 | ESOP_ITS ---
Cardiac Cath Procedure Procedure Name Date of procedure: 05/17/2024 crushing machine operator: Jose Stroud MD Procedures performed: 1. Successful PCI performed to the mid OM1 with 2.75 x 16 mm Synergy RANDALL stent 2. Left heart cardiac catheterization including right and left Coronary angiograms and left ventriculogram 3. Ultrasound-guided access of the right radial artery as well as the right femoral artery 4. Moderate conscious sedation for 45 minutes Procedure Narrative HISTORY AND INDICATIONS:83-year-old female with a past medical history of type 2 diabetes mellitus,, essential hypertension, hyperlipidemia, hypothyroidism bilateral small PE with questionable pulmonary infarction in January 2022 cholelithiasis, status post bilateral knee replacement presented to the emergency department for further evaluation of chest pain for the last few days. Patient's troponins were elevated and continued to peak at 3.5 and decision was made to perform left heart cardiac catheterization given the presentation of acute coronary syndrome with NSTEMI. Patient was explained the risk benefits and alternatives of performing a left heart cardiac catheterization including the risk of bleeding, heart attack, stroke and in detail and the agreeable for the procedure. Consent signed, placed in the chart and H&P updated. DESCRIPTION OF PROCEDURE: The patient was brought to the cardiac catheterization lab and all asceptic precautions were followed. Patient was given 1 Mg of Versed and 50 mcg of fentanyl for moderate conscious sedation. 2 mL of lidocaine was given in the right wrist. The right radial artery was accessed via the ultrasound guidance as well as micropuncture technique. A 6 [place] glide sheath was introduced. We then used a 5 [place] TIG 4 catheter to perform the left coronary angiograms as well as a left ventriculogram which showed the following findings. Patient had significantly tortuous innominate artery and it was difficult to engage the right coronary artery and be then obtained right femoral access. Micropuncture technique as well as ultrasound-guided access was obtained of the right femoral artery. A 6 [place] sheath was introduced in the right femoral sheath. A JR4 diagnostic catheter was used to perform the right coronary angio gram. Left heart cardiac catheterization showed the following findings. 1. LVEF is normal at 65 to 70%. LVEDP was low at 6 mmHg. There was no significant transvalvular right gradient. 2. Left main artery is a large sized artery with mild 20% disease 3. LAD is a large sized artery with severe 90% stenosis in the mid LAD with a mild disease in the rest of the LAD and 2 very small diagonals. 4. LCx is a large sized artery with medium to large OM1 with severe 99% stenosis in the mid OM1 and a moderate 50% stenosis in the proximal OM1. Distal LCx is small with no significant disease. 5. RCA is a large sized artery with 50% stenosis focal in the proximal and mid portion. RPDA is a medium sized artery with no significant disease. RPDA is a small artery with moderate 60 to 70% stenosis in the proximal and midportion Intervention: Patient presented with NSTEMI with elevated troponins as well as chest pain and decision was made to perform PCI for the severe 90% stenosis in the mid OM1. Patient is given Brilinta 180 mg x 1. Additional 4005 mg of heparin given and ACT was greater than 250 during the entire procedure. VL 3.0 guide was used to engage the left main artery. A run-through guidewire is was used to successfully cross the lesion in the mid OM1. We then used a 2.5 x 12 mm semicompliant balloon and performed predilation twice at 6 and 8 juan r. A Synergy 2.75 x 16 mm RANDALL stent was placed in the mid OM1 and was inflated at 11 juan r for 30 seconds and 12 juan r for another 20 seconds and deployed successfully. A 2.75 x 12 mm NC balloon was then used to perform post dilation at 14 juan r in the proximal to midportion and then 12 juan r in the mid to distal portion. Excellent results with MJ-3 flow was achieved with no complications. Final images were taken and all equipment was removed. Manual manual pressure was used to obtain hemostasis of the right femoral artery as well as the radial band was used to obtain access of the right radial artery. Patient will be monitored in the cardiac Group Home Paraprofessional for the next 4 hours and then will be transferred back to the telemetry floor. Preintervention: Mid OM1-99% stenosis with MJ II flow Postintervention: Mid OM1 with 0% or no residual stenosis with MJ-3 flow Complications: None Specimens: None Blood loss: Estimated 5-10 ml Summary/findings: Acute coronary syndrome-NSTEMI 1. Left heart cardiac catheterization showed severe multivessel CAD with 90% stenosis of the mid OM1 with MJ II flow, 90% stenosis of the mid LAD, moderate 50% stenosis of the proximal, mid RCA as well as the proximal OM1. Moderate 60 to 70% stenosis of the small RPDA in the proximal and mid portions. 2. Left ventricular ejection fraction was normal at 65 to 70%, low LVEDP at 6 mmHg and no significant transvalvular aortic gradient. Intervention: Successful PCI performed to the mid OM1 with a 2.75 x 16 mm Synergy RANDALL stent and postdilated with a 2.75 NC with excellent results and MJ-3 flow. Recommendations: 1. Recommended aggressive risk factor modification and aggressive medical treatment with aspirin 81 mg once daily, Brilinta 90 mg twice daily, increase statin Lipitor 80 mg once daily, metoprolol XL 25 mg once daily. 2. Will plan for staged PCI of mid LAD with 90% stenosis tomorrow or day after tomorrow based on the patient's renal function. 3. Recommend aggressive medical treatment for the rest of the moderate disease in the RCA, proximal OM1 and also the small RPDA. 4. Recommended no lifting more than 5 pounds for 7 days and follow up in my office in 7 days. Jose Stroud MD Interventional Cardiology.
[2024-05-17] MEDS: SODIUM CHLORIDE 0.9% 500 ML 500 ML 100 ML IV ×2 (10:26→12:17)
--- NOTE | 2024-05-17 11:03 | PC.NURSE ---
1026 patient is awake, alert, breathing unlabored, s/p LHC by dr Stroud, TR band present to right wrist, no bleeding or hematoma noted, femoral sheath present to right groin, no bleeding noted. Will wait for 2hrs to start removing air from TR band, will need to check ACT and follow protocol to remove femoral sheath. 1045 report given to Lashon HESTER 1100 report received from Lashon HESTER
--- NOTE | 2024-05-17 11:17 | PC.NURSE ---
1117 patient awake, alert, breathing unlabored, no bleeding noted to right wrist or right groin, report given to Lashon HESTER
[2024-05-17] MEDS: POTASSIUM CHL 10 mEq IVPB 10 MEQ/100 ML BAG 100 MEQ IV (11:35)
[2024-05-17] MEDS: POTASSIUM CHL 10 mEq IVPB 10 MEQ/100 ML BAG 50 MEQ IV (13:36)
--- NOTE | 2024-05-17 14:11 | ESPR_ITS ---
<Statement entered by Shirin Rider MD - 05/17/24 18:23> I discussed with and supervised my co-resident involved in the care of this patient. I agree with the assessment and plan as documented above. Shirin Rider,PGY-3 Disclaimer: Despite multiple revisions, due to the dictation software being used, the document below may not be free of grammatical errors including phonetic/typographic errors. However, this does not deter from our commitment to providing health care in the patient's best interest in mind. Documentation for date of: 05/17/24 Subjective Subjective Interval history: Patient seen at bedside after cardiac cath today. Patient underwent successful heart catheterization by big machine consultant in which she was found to have triple- vessel disease. During heart catheterization her left circumflex artery was stented. Home Health Specialist started the patient on Brilinta 90 mg twice daily. Plan for heart catheterization again tomorrow. Will be n.p.o. after midnight. Exam Vital Signs Temp Pulse Resp BP Pulse Ox O2 Del Method 98 F 67 11 L 132/76 H 99 Room Air 05/17/24 12:30 05/17/24 13:30 05/17/24 13:30 05/17/24 13:30 05/17/24 13:30 05/17/24 13:30 Narrative Exam General: A/O x3, no acute distress, well-nourished, well-developed Eyes: PERRL, EOMI. Anicteric, vision grossly intact. Ears: No ear pain, no ear discharge, Hearing grossly intact. Nose: No nasal discharge. Mouth/Throat: Moist mucous membranes, no redness, no lesions. Neck: Neck supple, non-tender, no cervical lymphadenopathy. Lungs: Clear GERMAN to auscultation and percussion, No accessory muscle use. Cardio: Normal S1/S2, regular rhythm, no murmurs, no JVD or carotid bruits. Abdomen: Soft, non-tender, no palpable masses, peristalsis present, no guarding or rebound. Extremities: Symmetrical, no significant deformities, no peripheral edema , non-tender, peripheral pulses presents. Skin: No rashes, no lesions, warm to touch. R wrist wrapping with clean dressing at heart cath incision site Neuro: No focal neurological deficits. Psych: Cooperative, appropriate mood and effect. Objective Labs 05/18/24 04:54 05/18/24 04:54 Labs: Laboratory Results - last 24 hr 05/17/24 05:40 WBC 7.8 RBC 4.27 Hgb 13.1 Hct 38.6 MCV 90 MCH 30.7 MCHC 33.9 RDW Std Deviation 43.4 Plt Count 244 Neut % (Auto) 70 Lymph % (Auto) 19 [place] % (Auto) 9 Eos % (Auto) 1 Baso % (Auto) 1 Neut # (Auto) 5.5 Lymph # (Auto) 1.5 [place] # (Auto) 0.7 Eos # (Auto) 0.1 Baso # (Auto) 0.1 Immature Gran # (Auto) 0.03 H Absolute Nucleated RBC 0.00 Immature Gran % 0 Nucleated RBC % 0 APTT 59.3 H Sodium 138 Potassium 3.8 Chloride 104 Carbon Dioxide 27.0 Anion Gap 7 BUN 12 Creatinine 0.6 Estim Creat Clear Calc 50.6 L eGFR > 60 BUN/Creatinine Ratio 20 Glucose 97 Calculated Osmolality 275 Calcium 9.1 Phosphorus 3.7 Magnesium 2.0 Quality Measures Quality Measures none Advance care planning discussed with:: patient Assessment & Plan Assessment Current Active Medications: Generic Name Dose Route Start Last Admin Trade Name Freq PRN Reason Stop Dose Admin Acetaminophen 650 mg 05/14/24 17:13 Acetaminophen 325 Mg Tablet PO 06/13/24 17:12 Q6H PRN PAIN SCALE 1-3 (mild Hydrocodone Bitart/Acetaminophen 1 tab 05/14/24 17:13 Hydrocodone/Apap 10/325 Tab PO 05/19/24 17:12 Q4H PRN PAIN SCALE 4-6 (Moderate Aspirin 81 mg 05/15/24 09:00 05/17/24 08:30 Aspirin Ec 81 Mg Tabec PO 06/14/24 08:59 81 mg QDAY WALTER Administration Atorvastatin Calcium 40 mg 05/15/24 21:00 05/16/24 20:14 Atorvastatin Calcium 20 Mg Tablet PO 06/14/24 20:59 40 mg HS WALTER Administration Heparin Sodium/Dextrose 25,000 unit in 250 mls @ 6.651 mls/hr 05/14/24 16:30 05/16/24 01:18 Heparin In D5w Ivpb IV 05/28/24 16:29 14 units/kg/hr .Q24H WALTER 7.759 mls/hr Administration Protocol 12 UNITS/KG/HR Sodium Chloride 500 mls @ 100 mls/hr 05/17/24 10:22 05/17/24 10:26 Ns IV 05/17/24 15:21 100 mls/hr .Q5H ONE Administration Sodium Chloride 500 mls @ 100 mls/hr 05/17/24 10:22 05/17/24 12:17 Ns IV 05/17/24 15:21 100 mls/hr .Q5H ONE Administration Insulin Glargine 4 unit 05/15/24 09:00 05/17/24 08:31 Insulin Glargine (Lantus) 5 Unit/0.05 Ml (Per 5 Units) SC 06/14/24 08:59 Not Given QDAY WALTER Levothyroxine Sodium 75 mcg 05/15/24 06:00 05/17/24 05:33 Levothyroxine Sodium 25 Mcg Tablet PO 06/14/24 05:59 75 mcg ACBR WALTER Administration Metoprolol Succinate 25 mg 05/16/24 10:15 05/17/24 08:29 Metoprolol Succinate Xl 25 Mg Tabcr PO 06/15/24 10:14 25 mg QDAY WALTER Administration Morphine Sulfate 0.5 mg 05/14/24 17:32 05/16/24 16:59 Morphine Sulf Inj 10 Mg/Ml Vial IVP 05/19/24 17:31 0.5 mg Q4H PRN Administration Pain 7-10 Ticagrelor 90 mg 05/17/24 21:00 Ticagrelor 90 Mg Tablet PO 06/16/24 20:59 BID WALTER Plan 84-year-old female with past medical history of DM2, hyperlipidemia, and hypothyroidism was admitted to the hospital on 05/14/2024 due to NSTEMI. #NSTEMI #Triple-vessel disease s/p stent ?Initially patient came in with typical chest pain ?Troponins peaked at 3.092 and down trended ? EKG did not show any ST changes ?Patient underwent heart catheterization today which showed to have triple- vessel disease involving the left circumflex, LAD, and RPDA Plan: ? Plan for heart cath again tomorrow ? N.p.o. after midnight ? Continue Brilinta 90 mg twice daily ? Continue aspirin and atorvastatin ? Cardiology consulted, appreciate recommendations ? Will continue monitor #Hx of DM2 ?Blood glucose 97 today and A1c 6.7 on 05/2024 Plan: ? ISS ? Accu-Cheks and hypoglycemia protocol ordered ? Will continue to monitor #Hx of hypothyroidism ?TSH 8.83 and free T4 1.23 ? Continue levothyroxine 75 mcg in the morning #Hx of hyperlipidemia ? Continue atorvastatin Disposition: Patient admitted to telemetry, NPO at midnight for possible heart cath continue brilinta and ASA. Diet: Cardiac/carb low GI prophylaxis: not indicated DVT prophylaxis: Brillinta Code: Full Code Case disclosed with Attending Dr. Astudillo and My senior Dr. Rider PGY3. Jacob Sexton PGY1 Attending Provider Attestation/Addendum I have examined the patient, reviewed labs and imaging findings, discussed the case with the resident(s), and reviewed entered orders. I agree with the plan of care as outlined in this note, with these additional summaries/recommendations: Patient is a 84-year-old female with a medical history of hypothyroidism, diabetes mellitus type 2, osteoarthritis, hyperlipidemia, and history of DVT who presented to [facility] emergency department on 05/14/2024 with chief complaint of chest pain. Patient was found to have elevated troponins and hospitalist team consulted for continuation of care. # NSTEMI type I Presented with chest pain radiating to the neck Given typical features and patient's age this is concerning for ACS or plaque rupture MJ score: 4 points indicating 20% risk at 14 days of all cause mortality Melody score: 122 points indicating a percent probability of from admission to 6 months Troponin elevated to 1.084 EKG: Sinus rhythm, rate 68, nonspecific ST changes although no ST elevation Work-up: Telemetry, troponin until downtrending, serial EKGs, TTE Treatment: Titrate O2 as needed for symptoms Antiplatelet: Status post aspirin 325 mg p.o. x 1 in ED. Continue aspirin 81 mg p.o. daily. Anticoagulation: Heparin gtt. Plaque stabilization: Atorvastatin 40 mg p.o. daily Okay to give IV morphine as needed for chest pain or nitroglycerin as needed if blood pressure can tolerate Plan: Patient seen at bedside. She has no chest pain to report at this time. She is n.p.o. and will go for cardiac catheterization today and we will follow- up results postoperatively. # Diabetes mellitus type 2 A1C 6.7%. Continue insulin sliding scale with Accu-Cheks. Target blood sugar of 140-180 while hospitalized. # Hypothyroidism TSH 8.83, Free T4 1.23. Continue home levothyroxine # Dyslipidemia Plan: Continue atorvastatin Dr. Astudillo
--- NOTE | 2024-05-17 14:47 | PC.SS ---
Rounding Note: Plan is for the patient to obtain cardiac cath today. Possible d/c tomorrow.
[2024-05-17] MEDS: SODIUM CHLORIDE 0.9% 1000 ML 1,000 ML 75 ML IV (17:51)
[2024-05-17] MEDS: TICAGRELOR 90 MG TABLET PO (21:01)
[2024-05-17] MEDS: ATORVASTATIN CALCIUM 20 MG TABLET 40 MG PO (21:01)
[2024-05-18] VITALS (23 sets, daily range): BP systolic 106–154; BP diastolic 59–94; PULSE 65–97; RESP 15–23; TEMP 36.1–36.8; O2SAT 94–98; BMI 24.5
[2024-05-18 05:50] LABS: Basophils % (Auto) 0 % (0-2.5); Eosinophils % (Auto) 0 % (0-10); Hematocrit 36.1 % (36.0-46.0); Hemoglobin 12.4 g/dL (12.0-16.0); Immature Granulocytes % (Auto) 0 % (0-0); Immature Granulocytes Auto 0.02 Thou/mm3 (0.00-0.00); Lymphocytes # (Auto) 0.9 Thou/mm3 (1.0-4.8); Lymphocytes % (Auto) 11 % (10-50); Mean Corpuscular HGB Conc 34.3 g/dl (31.0-37.0); Mean Corpuscular Hemoglobin 30.3 pg (25.0-35.0); Mean Corpuscular Volume 88 fL (80-100); Monocytes # (Auto) 0.7 Thou/mm3 (0.0-0.8); Monocytes % (Auto) 8 % (0-12); Neutrophils # (Auto) 6.5 Thou/mm3 (1.8-7.7); Neutrophils % (Auto) 80 % (37-80); Nucleated Red Blood Cell % 0 /100 WBC (0); Platelet Count 210 Thou/mm3 (140-440); RDW Standard Deviation 42.2 fL (36.4-46.3); Red Blood Count 4.09 Miln/mm3 (4.00-5.20); White Blood Count 8.2 Thou/mm3 (3.6-11.0)
[2024-05-18] MEDS: LEVOTHYROXINE SODIUM 25 MCG TABLET 75 MCG PO (06:21)
[2024-05-18 06:39] LABS: Alanine Aminotransferase 21 U/L (10-49); Albumin, Serum 3.9 gm/dL (3.4-4.8); Albumin/Globulin Ratio 1.6 (1.2-2.2); Alkaline Phosphatase 92 U/L (46-116); Anion Gap 9 (7-16); Aspartate Amino Transferase 41 U/L (0-34); BUN/Creatinine Ratio 15 Ratio (12-20); Bilirubin,Total 0.9 mg/dL (0.3-1.2); Blood Urea Nitrogen 9 mg/dL (9-23); Calcium 8.8 mg/dL (8.3-10.6); Calcium (Corrected) 8.9 mg/dL (8.5-10.1); Carbon Dioxide 22.6 mMol/L (20.0-31.0); Chloride 104 mMol/L (98-107); Creatinine (Component) 0.6 mg/dL (0.6-1.3); Estimated Creatinine Clearance 50.2 mL/min (>60); Globulin 2.4 gm/dL (2.3-3.5); Glucose 105 mg/dL (74-106); Magnesium 1.9 mg/dL (1.6-2.6); Osmolality,Calculated 270 (275-295); Potassium 3.4 mMol/L (3.4-5.1); Sodium 136 mMol/L (136-145); Total Protein 6.3 gm/dL (5.7-8.2); eGFR > 60 See Note
[2024-05-18] MEDS: POTASSIUM CHLORIDE 20 mEq TABCR 40 MEQ PO (08:29)
[2024-05-18] MEDS: ASPIRIN EC 81 MG TABEC PO (08:30)
[2024-05-18] MEDS: METOPROLOL SUCCINATE XL 25 MG TABCR PO (08:30)
[2024-05-18] MEDS: Magnesium Sulfate 2 GM Ivpb 2 GM/50 ML BAG IV (08:30)
[2024-05-18 08:33] LABS: INR 1.2 (0.9-1.3); Partial Thromboplastin Time 29.9 Seconds (22.0-36.0); Prothrombin Time 12.6 Seconds (9.0-12.2)
[2024-05-18] MEDS: TICAGRELOR 90 MG TABLET PO ×2 (08:36→20:34)
--- NOTE | 2024-05-18 09:09 | PC.SS ---
Update: Plan is for the patient to undergo cathead operator procedure today.
--- NOTE | 2024-05-18 12:28 | PC.NURSE ---
1149 patient is awake, alert, breathing unlabored, s/p LHC with PCI, arterial sheath present to right groin, no bleeding noted, report received from Reese HESTER, patient to have ACT checked at 1315, if ACT less than 170, ok to remove arterial sheath and keep patient in medical laboratory technicians 2hrs post sheath removal
--- NOTE | 2024-05-18 12:52 | PC.SS ---
Update: DEVELOPMENT TECHNOLOGIST informed by bedside nurse that patient currently at concrete plant laborer undergoing stent placement procedure.
--- NOTE | 2024-05-18 12:56 | ESPR_ITS ---
<Statement entered by Shirin Rider MD - 05/18/24 14:17> Patient was examined bedside this morning, she was sitting in the gurney to go to Staff Development Educator. denies any chest pain.pending cardiology recs after cath. anticipate discharge in next 24 to 48 hours I discussed with and supervised my co-resident involved in the care of this patient. I agree with the assessment and plan as documented above. Shirin iRder,PGY-3 Disclaimer: Despite multiple revisions, due to the dictation software being used, the document below may not be free of grammatical errors including phonetic/typographic errors. However, this does not deter from our commitment to providing health care in the patient's best interest in mind. Documentation for date of: 05/18/24 Subjective Subjective Interval history: Patient was seen at bedside this morning. No overnight events. Patient was going to be taken to the heart cath today. Echocardiogram did show ejection fraction of 55 to 60%. On first heart catheterization yesterday patient did PCI of mid OM1. Will continue Brilinta and ASA as per cardiology. No new complaints at this time. Will await further recommendations from cardiology. Exam Vital Signs Temp Pulse Resp BP Pulse Ox O2 Del Method 97.9 F 72 15 130/73 96 Room Air 05/18/24 11:49 05/18/24 12:15 05/18/24 12:15 05/18/24 12:15 05/18/24 12:15 05/18/24 12:15 Narrative Exam General: A/O x3, no acute distress, well-nourished, well-developed Eyes: PERRL, EOMI. Anicteric, vision grossly intact. Ears: No ear pain, no ear discharge, Hearing grossly intact. Nose: No nasal discharge. Mouth/Throat: Moist mucous membranes, no redness, no lesions. Neck: Neck supple, non-tender, no cervical lymphadenopathy. Lungs: Clear GERMAN to auscultation and percussion, No accessory muscle use. Cardio: Normal S1/S2, regular rhythm, no murmurs, no JVD or carotid bruits. Abdomen: Soft, non-tender, no palpable masses, peristalsis present, no guarding or rebound. Extremities: Symmetrical, no significant deformities, no peripheral edema , non-tender, peripheral pulses presents. Skin: No rashes, no lesions, warm to touch. R wrist wrapping with clean dressing at heart cath incision site Neuro: No focal neurological deficits. Psych: Cooperative, appropriate mood and effect. Objective Labs 05/19/24 04:51 05/19/24 04:51 Labs: Laboratory Results - last 24 hr 05/17/24 05/17/24 05/18/24 11:45 13:15 04:54 WBC 8.2 RBC 4.09 Hgb 12.4 Hct 36.1 MCV 88 MCH 30.3 MCHC 34.3 RDW Std Deviation 42.2 Plt Count 210 D Neut % (Auto) 80 Lymph % (Auto) 11 [place] % (Auto) 8 Eos % (Auto) 0 Baso % (Auto) 0 Neut # (Auto) 6.5 Lymph # (Auto) 0.9 L [place] # (Auto) 0.7 Eos # (Auto) 0.0 Baso # (Auto) 0.0 Immature Gran # (Auto) 0.02 H Absolute Nucleated RBC 0.00 Immature Gran % 0 Nucleated RBC % 0 PT 12.6 H INR 1.2 APTT 29.9 D Activated Clotting Time 229.0 H 159.0 Sodium 136 Potassium 3.4 Chloride 104 Carbon Dioxide 22.6 Anion Gap 9 BUN 9 Creatinine 0.6 Estim Creat Clear Calc 50.2 L eGFR > 60 BUN/Creatinine Ratio 15 Glucose 105 Calculated Osmolality 270 L Calcium 8.8 Corrected Calcium 8.9 Magnesium 1.9 Total Bilirubin 0.9 AST 41 H ALT 21 Alkaline Phosphatase 92 Total Protein 6.3 Albumin 3.9 Globulin 2.4 Albumin/Globulin Ratio 1.6 05/18/24 11:18 WBC RBC Hgb Hct MCV MCH MCHC RDW Std Deviation Plt Count Neut % (Auto) Lymph % (Auto) [place] % (Auto) Eos % (Auto) Baso % (Auto) Neut # (Auto) Lymph # (Auto) [place] # (Auto) Eos # (Auto) Baso # (Auto) Immature Gran # (Auto) Absolute Nucleated RBC Immature Gran % Nucleated RBC % PT INR APTT Activated Clotting Time 289.0 H Sodium Potassium Chloride Carbon Dioxide Anion Gap BUN Creatinine Estim Creat Clear Calc eGFR BUN/Creatinine Ratio Glucose Calculated Osmolality Calcium Corrected Calcium Magnesium Total Bilirubin AST ALT Alkaline Phosphatase Total Protein Albumin Globulin Albumin/Globulin Ratio Quality Measures Quality Measures none Advance care planning discussed with:: patient Assessment & Plan Assessment Current Active Medications: Generic Name Dose Route Start Last Admin Trade Name Freq PRN Reason Stop Dose Admin Acetaminophen 650 mg 05/14/24 17:13 Acetaminophen 325 Mg Tablet PO 06/13/24 17:12 Q6H PRN PAIN SCALE 1-3 (mild Hydrocodone Bitart/Acetaminophen 1 tab 05/14/24 17:13 Hydrocodone/Apap 10/325 Tab PO 05/19/24 17:12 Q4H PRN PAIN SCALE 4-6 (Moderate Aspirin 81 mg 05/15/24 09:00 05/18/24 08:30 Aspirin Ec 81 Mg Tabec PO 06/14/24 08:59 81 mg QDAY WALTER Administration Atorvastatin Calcium 80 mg 05/18/24 21:00 Atorvastatin Calcium 20 Mg Tablet PO 06/17/24 20:59 HS WALTER Levothyroxine Sodium 75 mcg 05/15/24 06:00 05/18/24 06:21 Levothyroxine Sodium 25 Mcg Tablet PO 06/14/24 05:59 75 mcg ACBR WALTER Administration Metoprolol Succinate 25 mg 05/16/24 10:15 05/18/24 08:30 Metoprolol Succinate Xl 25 Mg Tabcr PO 06/15/24 10:14 25 mg QDAY WALTER Administration Morphine Sulfate 0.5 mg 05/14/24 17:32 05/16/24 16:59 Morphine Sulf Inj 10 Mg/Ml Vial IVP 05/19/24 17:31 0.5 mg Q4H PRN Administration Pain 7-10 Ticagrelor 90 mg 05/17/24 21:00 05/18/24 08:36 Ticagrelor 90 Mg Tablet PO 06/16/24 20:59 90 mg BID WALTER Administration Plan 84-year-old female with past medical history of DM2, hyperlipidemia, and hypothyroidism was admitted to the hospital on 05/14/2024 due to NSTEMI. #NSTEMI type 1 #Triple-vessel disease s/p stent ?Initially patient came in with typical chest pain ?Troponins peaked at 3.092 and down trended ? EKG did not show any ST changes ?Patient underwent heart catheterization today which showed to have triple- vessel disease involving the left circumflex, LAD, and RPDA and underwent PCI of mid OM1. -Echocardiogram did show ejection fraction of 55 to 60%. Plan: - Getting heart cath today again ? Continue Brilinta 90 mg twice daily ? Continue aspirin and atorvastatin ? Cardiology consulted, appreciate recommendations ? Will continue monitor #Hx of DM2 ?Blood glucose 105 today and A1c 6.7 on 05/2024 Plan: ? ISS ? Accu-Cheks and hypoglycemia protocol ordered ? Will continue to monitor #Hx of hypothyroidism ?TSH 8.83 and free T4 1.23 ? Continue levothyroxine 75 mcg in the morning #Hx of hyperlipidemia ? Continue atorvastatin 80 Disposition: Patient getting heart cath today, continue brilinta and ASA. Diet: Cardiac/carb low after procedure GI prophylaxis: not indicated DVT prophylaxis: Brillinta Code: Full Code Case disclosed with Attending Dr. Astudillo and My senior Dr. Rider PGY3. Jacob Sexton PGY1 Attending Provider Attestation/Addendum I have examined the patient, reviewed labs and imaging findings, discussed the case with the resident(s), and reviewed entered orders. I agree with the plan of care as outlined in this note, with these additional summaries/recommendations: Patient is a 84-year-old female with a medical history of hypothyroidism, diabetes mellitus type 2, osteoarthritis, hyperlipidemia, and history of DVT who presented to [facility] emergency department on 05/14/2024 with chief complaint of chest pain. Patient was found to have elevated troponins and hospitalist team consulted for continuation of care. # NSTEMI type I Plan: Patient seen at bedside. Patient is status post cardiac catheterization on 05/17/2024 and was found to have severe multivessel CAD with successful PCI to mid OM1 with stent placement. Given the extent of CAD patient will go back to cardiac catheterization today 05/18 for further intervention. Continue aspirin 81 mg p.o. daily, atorvastatin 80 mg p.o. at bedtime, and Brilinta 90 mg p.o. twice daily. Start metoprolol succinate XL 25 mg p.o. daily. # Diabetes mellitus type 2 A1C 6.7%. Continue insulin sliding scale with Accu-Cheks. Target blood sugar of 140-180 while hospitalized. # Hypothyroidism TSH 8.83, Free T4 1.23. Continue home levothyroxine # Dyslipidemia Plan: Continue atorvastatin Dr. Astudillo
--- NOTE | 2024-05-18 12:58 | PC.SS ---
CONTINUOUS DRYOUT OPERATOR conducted phone contact with patient?s daughter, Jessy Larios; to conduct initial assessment and discuss discharge plan on behalf of the patient. CONTINUOUS DRYOUT OPERATOR utilized translation services to assist with discussion. Patient resides at home with daughter, Monae Mchugh . Patient utilizes a cane to assist with ambulation. Patient does not utilize home oxygen. Patient possesses ability to complete ADL?s independently. Patient?s family provides patient with transportation to appointments. Patient?s medical surrogate decision maker is odin, Monae Mchugh. Patient?s PCP is Ashley Granados. Patient does not participate with dialysis. Patient utilizes [facility] for medication services. Plan is for the patient to return home at the time of discharge. Family will provide transportation on behalf of the patient. No discharge needs identified by the patient?s daughter. No further intervention required at this time, dialysis social worker will be available to address any further concerns. Next of Kin: Monae Mchugh D/C Plan: Home
--- NOTE | 2024-05-18 13:28 | ESPR_ITS ---
Documentation for date of: 05/18/24 Subjective Subjective Interval history: 04/2025: Patient examined at bedside today. Still reviewed, patient heart rate to be in the 70s and 80s no overnight events. Patient reports she is doing well Zaxby's any chest pain shortness of breath or headache. Family present at bedside. Patient still agreeable with doing cardiac catheterization tomorrow risk and benefits were discussed with patient again and she is still agreeable. She does not have any questions regards to the procedure. Will continue with heparin drip and will have it stopped upon It Security Project Manager call. BUN/creatinine 15 and 0.7 respectively. Will continue current management of metoprolol 25 XL, aspirin and Lipitor 40 mg. Catheterization tomorrow to be done by Dr. Stroud around 7:30 AM 05/17/2024: Pt examined at bedside today. Telemetry reviewed, no overnight events on tele. Pt to get cardiac catherization today, will follow up with pt throughout the day to see how she tolerates procedure. BUN/Cr 12 and 0.6 respectively, potassium 3.8 and 2.0. 05/18/2024: Patient examined bedside. Telemetry reviewed, no acute overnight events on telemetry. Patient is to get second cardiac cath today, agreeable to procedure, will follow-up with patient after procedure is done. BUN/creatinine 9 and 0.6 respectively, potassium 3.4, magnesium 1.9. Given potassium 40 millequivalents and magnesium 1 g as well. Exam Vital Signs Temp Pulse Resp BP Pulse Ox O2 Del Method 97.9 F 66 18 143/64 H 96 Room Air 05/18/24 11:49 05/18/24 13:00 05/18/24 13:00 05/18/24 13:00 05/18/24 13:00 05/18/24 13:00 Narrative Exam General: AAOx3, NAD, slovenian speaking eldery woman HEENT: Moist mucous membranes, conjunctiva clear, EOMI, PERRLA, Cardiovascular: S1, S2, radial pulses +2 bilat, RRR Pulmonary: CTAB bilat no cough, no wheezing GI: No tenderness to light or deep palpitation, no guarding, rigidity, rebound tenderness or distension Extremities: No presence of trace or pitting edema in lower extremities bilaterally, dorsalis pedis pulses +2 bilaterally Neuro: AAOx3, no focal motor or sensory deficits in the UE or LE bilat Psych: Good judgement, thought and behavior. Cooperative Objective Labs 05/18/24 04:54 05/18/24 04:54 Labs: Laboratory Results - last 24 hr 05/17/24 05/17/24 05/18/24 11:45 13:15 04:54 WBC 8.2 RBC 4.09 Hgb 12.4 Hct 36.1 MCV 88 MCH 30.3 MCHC 34.3 RDW Std Deviation 42.2 Plt Count 210 D Neut % (Auto) 80 Lymph % (Auto) 11 Morrill % (Auto) 8 Eos % (Auto) 0 Baso % (Auto) 0 Neut # (Auto) 6.5 Lymph # (Auto) 0.9 L Morrill # (Auto) 0.7 Eos # (Auto) 0.0 Baso # (Auto) 0.0 Immature Gran # (Auto) 0.02 H Absolute Nucleated RBC 0.00 Immature Gran % 0 Nucleated RBC % 0 PT 12.6 H INR 1.2 APTT 29.9 D Activated Clotting Time 229.0 H 159.0 Sodium 136 Potassium 3.4 Chloride 104 Carbon Dioxide 22.6 Anion Gap 9 BUN 9 Creatinine 0.6 Estim Creat Clear Calc 50.2 L eGFR > 60 BUN/Creatinine Ratio 15 Glucose 105 Calculated Osmolality 270 L Calcium 8.8 Corrected Calcium 8.9 Magnesium 1.9 Total Bilirubin 0.9 AST 41 H ALT 21 Alkaline Phosphatase 92 Total Protein 6.3 Albumin 3.9 Globulin 2.4 Albumin/Globulin Ratio 1.6 05/18/24 11:18 WBC RBC Hgb Hct MCV MCH MCHC RDW Std Deviation Plt Count Neut % (Auto) Lymph % (Auto) Morrill % (Auto) Eos % (Auto) Baso % (Auto) Neut # (Auto) Lymph # (Auto) Morrill # (Auto) Eos # (Auto) Baso # (Auto) Immature Gran # (Auto) Absolute Nucleated RBC Immature Gran % Nucleated RBC % PT INR APTT Activated Clotting Time 289.0 H Sodium Potassium Chloride Carbon Dioxide Anion Gap BUN Creatinine Estim Creat Clear Calc eGFR BUN/Creatinine Ratio Glucose Calculated Osmolality Calcium Corrected Calcium Magnesium Total Bilirubin AST ALT Alkaline Phosphatase Total Protein Albumin Globulin Albumin/Globulin Ratio Quality Measures Quality Measures none Advance care planning discussed with:: patient Assessment & Plan Assessment Current Active Medications: Generic Name Dose Route Start Last Admin Trade Name Freq PRN Reason Stop Dose Admin Acetaminophen 650 mg 05/14/24 17:13 Acetaminophen 325 Mg Tablet PO 06/13/24 17:12 Q6H PRN PAIN SCALE 1-3 (mild Hydrocodone Bitart/Acetaminophen 1 tab 05/14/24 17:13 Hydrocodone/Apap 10/325 Tab PO 05/19/24 17:12 Q4H PRN PAIN SCALE 4-6 (Moderate Aspirin 81 mg 05/15/24 09:00 05/18/24 08:30 Aspirin Ec 81 Mg Tabec PO 06/14/24 08:59 81 mg QDAY WALTER Administration Atorvastatin Calcium 80 mg 05/18/24 21:00 Atorvastatin Calcium 20 Mg Tablet PO 06/17/24 20:59 HS WALTER Levothyroxine Sodium 75 mcg 05/15/24 06:00 05/18/24 06:21 Levothyroxine Sodium 25 Mcg Tablet PO 06/14/24 05:59 75 mcg ACBR WALTER Administration Metoprolol Succinate 25 mg 05/16/24 10:15 05/18/24 08:30 Metoprolol Succinate Xl 25 Mg Tabcr PO 06/15/24 10:14 25 mg QDAY WALTER Administration Morphine Sulfate 0.5 mg 05/14/24 17:32 05/16/24 16:59 Morphine Sulf Inj 10 Mg/Ml Vial IVP 05/19/24 17:31 0.5 mg Q4H PRN Administration Pain 7-10 Ticagrelor 90 mg 05/17/24 21:00 05/18/24 08:36 Ticagrelor 90 Mg Tablet PO 06/16/24 20:59 90 mg BID WALTER Administration Plan Assessment The patient is a 84-year-old female with significant past medical history of diabetes mellitus type 2, 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 #NSTEMI type I Troponin 0.41 -> ~1.0 -> 2.7 -> 3.086 -> 3.092 -> 1.6 No prior history of LA Patient has no ST changes on EKG Patient may likely have NSTEMI, has history of bilateral PEs pulmonary infarct as well Will continue to medically manage and may intervene with PCI if needed on Friday Troponins peaked at 1.6 Cardiac catherization on 05/17/2024 1. Left heart cardiac catheterization showed severe multivessel CAD with 90% stenosis of the mid OM1 with MJ II flow, 90% stenosis of the mid LAD, moderate 50% stenosis of the proximal, mid RCA as well as the proximal OM1. Moderate 60 to 70% stenosis of the small RPDA in the proximal and mid portions. 2. Left ventricular ejection fraction was normal at 65 to 70%, low LVEDP at 6 mmHg and no significant transvalvular aortic gradient. Intervention: Successful PCI performed to the mid OM1 with a 2.75 x 16 mm Synergy RANDALL stent and postdilated with a 2.75 NC with excellent results and MJ-3 flow. Will continue with dual antiplatelet therapy, high intensity statin Staged PCI of mid LAD with 90% stenosis today Medical treatment for vessel moderate disease in the RCA, proximal OM1 and also the small RPDA Plan: ?Continue with Lipitor 80 mg ?Staged PCI of mid LAD today ?Continue aspirin and Brilinta 90 mg twice daily along with metoprolol XL and can add ARB with BP high ?Keep magnesium and potassium above 2 and 4 respectively #Diabetes mellitus type 2 On metformin at home A1c of 6.7 Plan: ? Primary team to manage sugars with glargine #History of hyperlipidemia Total cholesterol ~180 LDL ~103 Plan: ?Continue with Lipitor 80 mg by mouth #Hypothyroidism On home Synthroid 75 mcg TSH 8.83 Plan: ? Continue with home Synthroid 75 mcg #Mild hypoosmolar hyponatremia Above managed by primary team Patient seen and care discussed with my attending physician, Dr. Luanne Ballard, PGY-1 Attending Provider Attestation/Addendum I have personally seen and examined the patient separately on the above date of service and discussed the plan of care with the resident. I reviewed the resident Dr. Bergman consultation progress note and agree with the resident findings and plan in the note above and have also edited the documentation to reflect my findings and plan. Jose Stroud M.D. Interventional Cardiology
--- NOTE | 2024-05-18 13:52 | PC.NURSE ---
1252 patient is awake, alert, breathing unlabored, report given to Jaun HESTER 1350 patient awake, alert, breathing unlabored, s/p LHC, arterial sheath present to right groin, ACT checked at 1338 and was 176, arterial sheath left in place, will monitor patient and re check ACT lab. Report received from Jaun HESTER.
--- NOTE | 2024-05-18 16:10 | PC.NURSE ---
1429 ACT lab value checked and is currently 155, ok to remove arterial sheath to right groin 1430 patient had loose bowel movement, patient cleaned, linen changed 1442 arterial sheath removed from right groin, manual pressure applied 1502 manual pressure removed, no active bleeding or hematoma noted, gauze, tegadem applied to right groin 1505 hematoma noted to right pubic/groin, manual pressure applied by [employer] pest technician 1525 manual pressure removed from right groin,skin soft, hematoma resolved 1600 patient had loose bowel movement, patient cleaned, linen changed. No active bleeding or hematoma noted to right groin.
--- NOTE | 2024-05-18 17:33 | PC.NURSE ---
Addendum entered by Maria E Ware RN 05/18/24 18:01: patient to remain flat additional 2hrs Original Note: 3763 patient is awake, alert, breathing unlabored, dressing to right groin dry with no bleeding or hematoma, report given to Greg HESTER, patient transferred back to room 279
--- NOTE | 2024-05-18 19:49 | ESOP_ITS ---
Cardiac Cath Procedure Procedure Name Date of procedure: 05/18/2024 novelty twister operator: Jose Stroud MD Procedures performed: 1. Successful PCI performed to the mid LAD with a 2.75 x 23 mm Resendez RANDALL stent and postdilated with a 3.5 NC balloon 2. Ultrasound-guided access of the right femoral artery 3. Moderate conscious sedation for 45 minutes 4. Intravascular ultrasound-guided PCI for sizing of the stent and characterization of the lesion Procedure Narrative HISTORY AND INDICATIONS:83-year-old female with a past medical history of type 2 diabetes mellitus,, essential hypertension, hyperlipidemia, hypothyroidism bilateral small PE with questionable pulmonary infarction in January 2022 cholelithiasis, status post bilateral knee replacement presented to the emergency department for further evaluation of chest pain for the last few days. Patient's troponins were elevated and continued to peak at 3.5 and decision was made to perform left heart cardiac catheterization given the presentation of acute coronary syndrome with NSTEMI. LHC showed severe multivessel disease and PCI was performed to the mid OM1 on 05/17/2024 and now staged PCI of the LAD plan today. Patient was explained the risk benefits and alternatives of performing a left heart cardiac catheterization including the risk of bleeding, heart attack, stroke and in detail and the agreeable for the procedure. Consent signed, placed in the chart and H&P updated. DESCRIPTION OF PROCEDURE: The patient was brought to the cardiac catheterization lab and all asceptic precautions were followed. Patient was given 1 Mg of Versed and 50 mcg of fentanyl for moderate conscious sedation. 2 mL of l idocaine was given in the right wrist. Micropuncture technique as well as ultrasound-guided access was obtained of the right femoral artery. A 6 Croatian sheath was introduced in the right femoral sheath. EBU 3.5 guide catheter was used to engage the left main. Initially we used EBU 3.5 and an EBU 3.0 catheters but were unsuccessful. Intervention: Patient presented with NSTEMI with elevated troponins as well as chest pain and decision was made to perform PCI for the severe 90% stenosis in the mid OM1 which was performed on 05/17/2024. Patient was brought in today again for the staged PCI of the mid LAD. Patient is already on aspirin 81 mg and Brilinta 90 mg twice daily. Patient was given a total of 6000 the units of heparin and ACT was greater than 250 during the procedure. VL 3.5 guide was used to engage the left main artery. A run-through wire was used to cross the lesion in the mid LAD. We then used a 2.5 x 15 mm semicompliant balloon and performed predilatation and it did not showed adequate expansion. We then used an IVUS to characterize resident which showed severe calcification of 188-to 70 degrees. Basal size distally was around 2.75 mm to 3 mm and then used a 2.75 x 23 mm Resendez RANDALL stent and inflated at 12 and 14 juan r for a total of 50 seconds. We then used a 3.5 NC balloon and inflated from the mid to the proximal end of the stent at 12 and 14 juan r for a total of 30 seconds. Excellent results with MJ-3 flow noted at the end of the procedure without any complications. Final images were taken and all equipment was removed. Manual manual pressure was used to obtain hemostasis of the right femoral artery.. Patient will be monitored in the cardiac Bilingual Middle School Teacher for the next 4 hours and then will be transferred back to the telemetry floor. Preintervention: Mid LAD with 90% stenosis with MJ-3 flow Postintervention: Mid LAD with 0% or no residual stenosis with MJ-3 flow Complications: None Specimens: None Blood loss: Estimated 5-10 ml Summary/findings: Acute coronary [id number] had sexual PCI to the mid OM1 on 05/17/2024 and now scheduled for a Staged PCI of the LAD Successful PCI performed to the mid LAD with a 2.75 x 23 mm Resendez RANDALL stent and postdilated with a 3.5 NC balloon with excellent results and MJ-3 flow. No complications Recommendations: 1. Recommended aggressive risk factor modification and aggressive medical t reatment with aspirin 81 mg once daily, Brilinta 90 mg twice daily, increase statin Lipitor 80 mg once daily, metoprolol XL 25 mg once daily. 2. Recommend aggressive medical treatment for the rest of the moderate disease in the RCA, proximal OM1 and also the small RPDA. 3. Recommended no lifting more than 5 pounds for 7 days and follow up in my office in 7 days. Jose Stroud MD Interventional Cardiology.
[2024-05-18] MEDS: ATORVASTATIN CALCIUM 20 MG TABLET 80 MG PO (20:34)
[2024-05-19] VITALS: BP 94/59; PULSE 101; PULSE 107; RESP 20; TEMP 36.1; O2SAT 95
[2024-05-19 04:00] VITALS: BP 106/79; PULSE 101; PULSE 106; RESP 16; TEMP 36.4; O2SAT 96
[2024-05-19] MEDS: LEVOTHYROXINE SODIUM 25 MCG TABLET 75 MCG PO (05:14)
[2024-05-19 05:17] VITALS: BMI 24.5
[2024-05-19 05:28] LABS: Basophils % (Auto) 0 % (0-2.5); Eosinophils % (Auto) 0 % (0-10); Hematocrit 33.5 % (36.0-46.0); Hemoglobin 11.5 g/dL (12.0-16.0); Immature Granulocytes % (Auto) 1 % (0-0); Immature Granulocytes Auto 0.04 Thou/mm3 (0.00-0.00); Lymphocytes # (Auto) 0.9 Thou/mm3 (1.0-4.8); Lymphocytes % (Auto) 11 % (10-50); Mean Corpuscular HGB Conc 34.3 g/dl (31.0-37.0); Mean Corpuscular Hemoglobin 30.1 pg (25.0-35.0); Mean Corpuscular Volume 88 fL (80-100); Monocytes # (Auto) 0.6 Thou/mm3 (0.0-0.8); Monocytes % (Auto) 8 % (0-12); Neutrophils # (Auto) 6.5 Thou/mm3 (1.8-7.7); Neutrophils % (Auto) 81 % (37-80); Nucleated Red Blood Cell % 0 /100 WBC (0); Platelet Count 236 Thou/mm3 (140-440); RDW Standard Deviation 42.5 fL (36.4-46.3); Red Blood Count 3.82 Miln/mm3 (4.00-5.20); White Blood Count 8.1 Thou/mm3 (3.6-11.0)
[2024-05-19 06:19] LABS: Alanine Aminotransferase 20 U/L (10-49); Albumin, Serum 3.9 gm/dL (3.4-4.8); Albumin/Globulin Ratio 1.6 (1.2-2.2); Alkaline Phosphatase 88 U/L (46-116); Anion Gap 14 (7-16); Aspartate Amino Transferase 30 U/L (0-34); BUN/Creatinine Ratio 24 Ratio (12-20); Bilirubin,Total 0.9 mg/dL (0.3-1.2); Blood Urea Nitrogen 17 mg/dL (9-23); Calcium 8.7 mg/dL (8.3-10.6); Calcium (Corrected) 8.8 mg/dL (8.5-10.1); Carbon Dioxide 18.8 mMol/L (20.0-31.0); Chloride 103 mMol/L (98-107); Creatinine (Component) 0.7 mg/dL (0.6-1.3); Globulin 2.4 gm/dL (2.3-3.5); Glucose 119 mg/dL (74-106); Magnesium 2.2 mg/dL (1.6-2.6); Osmolality,Calculated 274 (275-295); Potassium 3.8 mMol/L (3.4-5.1); Sodium 136 mMol/L (136-145); Total Protein 6.3 gm/dL (5.7-8.2); eGFR > 60 See Note
[2024-05-19] MEDS: POTASSIUM CHLORIDE 20 mEq TABCR 40 MEQ PO (07:19)
[2024-05-19 08:00] VITALS: BP 100/59; PULSE 83; PULSE 88; RESP 17; TEMP 36.1; O2SAT 94
[2024-05-19 09:07] VITALS: BP 106/63; PULSE 90
[2024-05-19] MEDS: ASPIRIN EC 81 MG TABEC PO (09:07)
[2024-05-19] MEDS: METOPROLOL SUCCINATE XL 25 MG TABCR PO (09:07)
[2024-05-19] MEDS: TICAGRELOR 90 MG TABLET PO (09:07)
--- NOTE | 2024-05-19 11:04 | ESDS_ITS ---
<Statement entered by Shirin Rider MD - 05/19/24 13:13> I discussed with and supervised my co-resident involved in the care of this patient. I agree with the assessment and plan as documented above. Shirin Rider,PGY-3 Disclaimer: Despite multiple revisions, due to the dictation software being used, the document below may not be free of grammatical errors including phonetic/typographic errors. However, this does not deter from our commitment to providing health care in the patient's best interest in mind. Planned Discharge Date 05/19/24 DS: Providers Provider Date of admission: 05/14/24 17:13 Primary care physician: Ashley Granados NP Admitting Provider: Desmond Astudillo MD Attending Provider on Admission: Desmond Astudillo MD Consults: 05/14/24 15:20 Consult to Cardiology Stat Comment: Elevated troponin Consulting Provider: Jose Stroud Attending Provider on DC: Karina Ren MD Discharging Provider: Karina Ren MD DS: Diagnosis Problem List Completed Was Problem List Reviewed/Reconciled?: Yes Hospital Course Hospital Course Hospital course: 84-year-old female with past medical history of DM2, hyperlipidemia, and hypothyroidism was admitted to the hospital on 05/14/2024 due to NSTEMI. In the ED patient came in with complaints of chest pain. Initially patient was hypertensive and afebrile. Initial labs were relevant for mild hyponatremia (135), elevated troponins (peaked at 3.092 and down trended), and mildly elevated BNP. Initial imaging included chest x-ray which was suspicious for small bilateral pleural effusion and vascular congestion. EKG did not show any acute ST changes and echo showed EF of 55 to 60%. Litigation Legal Secretary was consulted and started the patient on heparin drip. Litigation Legal Secretary then took the patient to a heart cath given her risk factors and doing her heart cath on 05/17/2024 he found multivessel disease with 90% stenosis of mid OM1, 90% stenosis of mid LAD, moderate stenosis at 50% of the proximal and mid RCA, moderate stenosis 60 to 70% of the small RPDA. During this heart cath on 05/17/2024 a successful stent was placed on the mid OM1. Patient was taken again to the heart cath on 05/18/2024 and had successful stent placement of the mid LAD. Cardiology recommended to to start patient on Brilinta 90 mg twice daily, aspirin 81 mg daily, atorvastatin 80 mg daily, and metoprolol XL 25 mg daily. During the patient's hospital stay she remained stable and did not have any further episodes of chest pain. At the time of discharge patient was stable enough to be discharged home. Discharge plan: Please follow-up with your PCP within 1 week of discharge Please follow-up with heating and ventilating drafter Dr. Stroud within 1 week of discharge Before taking metoprolol succinate 25 mg daily please measure your blood pressure and if systolic blood pressure is less than 90 do not take metoprolol succinate. You have been started on: Aspirin 81 Mg daily Metoprolol succinate 25 Mg daily Atorvastatin 80 Mg daily Brillinta 90 mg twice daily Discontinued atorvastatin 20 Mg tablets -Continue with all other medicines as prescribed before -Recommended to return back to emergency department if your symptoms persist or does not improve Cardiology recommendations: 1. Recommended aggressive risk factor modification and aggressive medical treatment with aspirin 81 mg once daily, Brilinta 90 mg twice daily, increase statin Lipitor 80 mg once daily, metoprolol XL 25 mg once daily. 2. Recommend aggressive medical treatment for the rest of the moderate disease in the RCA, proximal OM1 and also the small RPDA. 3. Recommended no lifting more than 5 pounds for 7 days and follow up in my office in 7 days. Problem list: #NSTEMI type I #Triple-vessel disease s/p stent #Hx of DM2 #Hx of hypothyroidism # Hx of hyperlipidemia Case disclosed with Attending Dr. Ren and My senior Dr. Rider PGY3. Jacob Sexton PGY1 Status at Discharge Overall status at discharge: patient is progressing back to baseline Time Spent with Patient Time attestation: Total time spent providing and/or coordinating discharge services: >35 min Exam Vital Signs Temp Pulse Resp BP Pulse Ox O2 Del Method 97.0 F 90 17 106/63 94 L Room Air 05/19/24 08:00 05/19/24 09:07 05/19/24 08:00 05/19/24 09:07 05/19/24 08:00 05/19/24 08:00 Narrative Exam General: A/O x3, no acute distress, well-nourished, well-developed Eyes: PERRL, EOMI. Anicteric, vision grossly intact. Ears: No ear pain, no ear discharge, Hearing grossly intact. Nose: No nasal discharge. Mouth/Throat: Moist mucous membranes, no redness, no lesions. Neck: Neck supple, non-tender, no cervical lymphadenopathy. Lungs: Clear GERMAN to auscultation and percussion, No accessory muscle use. Cardio: Normal S1/S2, regular rhythm, no murmurs, no JVD Abdomen: Soft, non-tender, no palpable masses, peristalsis present, no guarding or rebound. Extremities: Symmetrical, no significant deformities, no peripheral edema , non-tender, peripheral pulses presents. Skin: No rashes, no lesions, warm to touch. No bleeding at heart cath site. Neuro: No focal neurological deficits. Psych: Cooperative, appropriate mood and effect. Discharge Plan Plan Patient Disposition: HOME (Self Care) Care Plan Goals: Please follow-up with your PCP within 1 week of discharge Please follow-up with heating and ventilating drafter Dr. Stroud within 1 week of discharge Before taking metoprolol succinate 25 mg daily please measure your blood pressure and if systolic blood pressure is less than 90 do not take metoprolol succinate. You have been started on: Aspirin 81 Mg daily Metoprolol succinate 25 Mg daily Atorvastatin 80 Mg daily Brillinta 90 mg twice daily Discontinued atorvastatin 20 Mg tablets -Continue with all other medicines as prescribed before -Recommended to return back to emergency department if your symptoms persist or does not improve Cardiology recommendations: 1. Recommended aggressive risk factor modification and aggressive medical t reatment with aspirin 81 mg once daily, Brilinta 90 mg twice daily, increase statin Lipitor 80 mg once daily, metoprolol XL 25 mg once daily. 2. Recommend aggressive medical treatment for the rest of the moderate disease in the RCA, proximal OM1 and also the small RPDA. 3. Recommended no lifting more than 5 pounds for 7 days and follow up in my office in 7 days. Prescriptions/Referrals Prescriptions/Med Rec: New aspirin [Ecotrin Low Strength] 81 mg Tablet,Delayed Release (Dr/Ec) 81 mg PO QDAY 30 Days Qty: 30 3RF metoprolol succinate 25 mg Tablet Extended Release 24 Hr 25 mg PO QDAY 30 Days Qty: 30 3RF atorvastatin 80 mg tablet 80 mg PO QPM 30 Days Qty: 30 3RF Brilinta 90 mg Tablet 90 mg PO BID 30 Days Qty: 60 2RF Continued metformin 500 mg Tablet 500 mg PO BID (DME) FreeStyle Yeny 2 Sensor Kit See Rx Instructions .Route Qty: 2 3RF Rx Instructions: As directed levothyroxine 25 mcg Tablet 75 mcg PO QDAY olopatadine 0.1 % Drops 1 drp OPHTHALMIC (EYE) BID Rx Instructions: separate doses by at least 6-8 hours (DME) FreeStyle Yeny 2 [place] Misc See Rx Instructions .Route Qty: 1 0RF Rx Instructions: As directed Discontinued atorvastatin 10 mg Tablet 20 mg PO QDAY Referrals: Jose Stroud MD [Physician] - Ashley Granados NP [Primary Care Provider] - Patient/Caregiver Discharge Instructions Discharge Activity: as per physical therapy and activity as tolerated Other Discharge Activity Instructions:: Please follow-up with your PCP within 1 week of discharge Please follow-up with heating and ventilating drafter Dr. Stroud within 1 week of discharge Before taking metoprolol succinate 25 mg daily please measure your blood pressure and if systolic blood pressure is less than 90 do not take metoprolol succinate. You have been started on: Aspirin 81 Mg daily Metoprolol succinate 25 Mg daily Atorvastatin 80 Mg daily Brillinta 90 mg twice daily Discontinued atorvastatin 20 Mg tablets -Continue with all other medicines as prescribed before -Recommended to return back to emergency department if your symptoms persist or does not improve Cardiology recommendations: 1. Recommended aggressive risk factor modification and aggressive medical treatment with aspirin 81 mg once daily, Brilinta 90 mg twice daily, increase statin Lipitor 80 mg once daily, metoprolol XL 25 mg once daily. 2. Recommend aggressive medical treatment for the rest of the moderate disease in the RCA, proximal OM1 and also the small RPDA. 3. Recommended no lifting more than 5 pounds for 7 days and follow up in my office in 7 days. Education Materials: First Aid: Heart Attacks, Recognizing a Heart Attack or Angina, Cardiac Catheterization Dc, Preventing Surgical Site Infections, Exercising After a Heart Attack, Heart Attack Meds, Procedural Sedation, Cardiac Cath Transradial Print Language: Nigerien Stand Alone Forms: Sydnie Award Info., Patient Portal Info Letter Discharge Order Discharge Orders: Discharge (Routine); Ordered 05/19/24 Ordered By: Lester Zendejas Quality Discharge Quality Measures VTE prophylaxis
[2024-05-19 12:00] VITALS: BP 126/77; PULSE 91; PULSE 93; RESP 18; TEMP 36.3; O2SAT 94
--- NOTE | 2024-05-19 13:49 | PD.RESPRO ---
Documentation for date of: 05/19/24 Subjective Subjective Interval history: 04/2025: Patient examined at bedside today. Still reviewed, patient heart rate to be in the 70s and 80s no overnight events. Patient reports she is doing well [place]'s any chest pain shortness of breath or headache. Family present at bedside. Patient still agreeable with doing cardiac catheterization tomorrow risk and benefits were discussed with patient again and she is still agreeable. She does not have any questions regards to the procedure. Will continue with heparin drip and will have it stopped upon [facility] call. BUN/creatinine 15 and 0.7 respectively. Will continue current management of metoprolol 25 XL, aspirin and Lipitor 40 mg. Catheterization tomorrow to be done by Dr. Stroud around 7:30 AM 05/17/2024: Pt examined at bedside today. Telemetry reviewed, no overnight events on tele. Pt to get cardiac catherization today, will follow up with pt throughout the day to see how she tolerates procedure. BUN/Cr 12 and 0.6 respectively, potassium 3.8 and 2.0. 05/18/2024: Patient examined bedside. Telemetry reviewed, no acute overnight events on telemetry. Patient is to get second cardiac cath today, agreeable to procedure, will follow-up with patient after procedure is done. BUN/creatinine 9 and 0.6 respectively, potassium 3.4, magnesium 1.9. Given potassium 40 millequivalents and magnesium 1 g as well. 05/19/2024: Patient examined at bedside today. Telemetry removed no acute overnight events on telemetry. Patient reports he is doing well, not experiencing chest pain palpitations or shortness of breath. Her groin site is clear no sign of hematoma or active drainage. Hemoglobin is at 11.5 today. BUN/creatinine at 17 and 0.7. Magnesium 2.2 and 3.8 for potassium. Will continue dual antiplatelet, aspirin and Brilinta therapy, statin, beta zaheer, MARTELL OR ARB and recommend follow-up for patient in outpatient setting with Dr. Stroud in 7 days Exam Vital Signs Temp Pulse Resp BP Pulse Ox O2 Del Method 97.0 F 90 17 106/63 94 L Room Air 05/19/24 08:00 05/19/24 09:07 05/19/24 08:00 05/19/24 09:07 05/19/24 08:00 05/19/24 08:00 Narrative Exam General: AAOx3, NAD, polish speaking eldery woman HEENT: Moist mucous membranes, conjunctiva clear, EOMI, PERRLA, Cardiovascular: S1, S2, radial pulses +2 bilat, RRR Pulmonary: CTAB bilat no cough, no wheezing GI: No tenderness to light or deep palpitation, no guarding, rigidity, rebound tenderness or distension Extremities: No presence of trace or pitting edema in lower extremities bilaterally, dorsalis pedis pulses +2 bilaterally Neuro: AAOx3, no focal motor or sensory deficits in the UE or LE bilat Psych: Good judgement, thought and behavior. Cooperative Objective Labs 05/19/24 04:51 05/19/24 04:51 Labs: Laboratory Results - last 24 hr 05/18/24 05/18/24 05/19/24 13:38 14:29 04:51 WBC 8.1 RBC 3.82 L Hgb 11.5 L Hct 33.5 L MCV 88 MCH 30.1 MCHC 34.3 RDW Std Deviation 42.5 Plt Count 236 Neut % (Auto) 81 H Lymph % (Auto) 11 [place] % (Auto) 8 Eos % (Auto) 0 Baso % (Auto) 0 Neut # (Auto) 6.5 Lymph # (Auto) 0.9 L [place] # (Auto) 0.6 Eos # (Auto) 0.0 Baso # (Auto) 0.0 Immature Gran # (Auto) 0.04 H Absolute Nucleated RBC 0.00 Immature Gran % 1 H Nucleated RBC % 0 Activated Clotting Time 176.0 H 155.0 Sodium 136 Potassium 3.8 Chloride 103 Carbon Dioxide 18.8 L Anion Gap 14 BUN 17 Creatinine 0.7 Estim Creat Clear Calc 43.0 L eGFR > 60 BUN/Creatinine Ratio 24 H Glucose 119 H Calculated Osmolality 274 L Calcium 8.7 Corrected Calcium 8.8 Magnesium 2.2 Total Bilirubin 0.9 AST 30 ALT 20 Alkaline Phosphatase 88 Total Protein 6.3 Albumin 3.9 Globulin 2.4 Albumin/Globulin Ratio 1.6 Quality Measures Quality Measures VTE prophylaxis Advance care planning discussed with:: patient Assessment & Plan Assessment Current Active Medications: Generic Name Dose Route Start Last Admin Trade Name Freq PRN Reason Stop Dose Admin Acetaminophen 650 mg 05/14/24 17:13 Acetaminophen 325 Mg Tablet PO 06/13/24 17:12 Q6H PRN PAIN SCALE 1-3 (mild Hydrocodone Bitart/Acetaminophen 1 tab 05/14/24 17:13 Hydrocodone/Apap 10/325 Tab PO 05/19/24 17:12 Q4H PRN PAIN SCALE 4-6 (Moderate Aspirin 81 mg 05/15/24 09:00 05/19/24 09:07 Aspirin Ec 81 Mg Tabec PO 06/14/24 08:59 81 mg QDAY WALTER Administration Atorvastatin Calcium 80 mg 05/18/24 21:00 05/18/24 20:34 Atorvastatin Calcium 20 Mg Tablet PO 06/17/24 20:59 80 mg HS WALTER Administration Levothyroxine Sodium 75 mcg 05/15/24 06:00 05/19/24 05:14 Levothyroxine Sodium 25 Mcg Tablet PO 06/14/24 05:59 75 mcg ACBR WALTER Administration Metoprolol Succinate 25 mg 05/16/24 10:15 05/19/24 09:07 Metoprolol Succinate Xl 25 Mg Tabcr PO 06/15/24 10:14 25 mg QDAY WALTER Administration Morphine Sulfate 0.5 mg 05/14/24 17:32 05/16/24 16:59 Morphine Sulf Inj 10 Mg/Ml Vial IVP 05/19/24 17:31 0.5 mg Q4H PRN Administration Pain 7-10 Ticagrelor 90 mg 05/17/24 21:00 05/19/24 09:07 Ticagrelor 90 Mg Tablet PO 06/16/24 20:59 90 mg BID WALTER Administration Plan Assessment The patient is a 84-year-old female with significant past medical history of diabetes mellitus type 2, 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 #NSTEMI type I Troponin 0.41 -> ~1.0 -> 2.7 -> 3.086 -> 3.092 -> 1.6 No prior history of [place] Patient has no ST changes on EKG Patient may likely have NSTEMI, has history of bilateral PEs pulmonary infarct as well Will continue to medically manage and may intervene with PCI if needed on Friday Troponins peaked at 1.6 Cardiac catherization on 05/17/2024 1. Left heart cardiac catheterization showed severe multivessel CAD with 90% stenosis of the mid OM1 with MJ II flow, 90% stenosis of the mid LAD, moderate 50% stenosis of the proximal, mid RCA as well as the proximal OM1. Moderate 60 to 70% stenosis of the small RPDA in the proximal and mid portions. 2. Left ventricular ejection fraction was normal at 65 to 70%, low LVEDP at 6 mmHg and no significant transvalvular aortic gradient. Intervention: Successful PCI performed to the mid OM1 with a 2.75 x 16 mm Synergy RANDALL stent and postdilated with a 2.75 NC with excellent results and MJ-3 flow. 2nd Cath Acute coronary [id number]-fylsryd had sexual PCI to the mid OM1 on 05/17/2024 and now scheduled for a Staged PCI of the LAD Successful PCI performed to the mid LAD with a 2.75 x 23 mm Resendez RANDALL stent and postdilated with a 3.5 NC balloon with excellent results and MJ-3 flow. No complications Will continue with dual antiplatelet therapy, high intensity statin Medical treatment for vessel moderate disease in the RCA, proximal OM1 and also the small RPDA Follow-up within 1 week of discharge and cardiology outpatient office Plan: ?Continue with Lipitor 80 mg ?Continue aspirin and Brilinta 90 mg twice daily along with metoprolol 25 XL ?Keep magnesium and potassium above 2 and 4 respectively Will continue dual antiplatelet, aspirin and Brilinta therapy, statin, beta zaheer, MARTELL OR ARB and recommend follow-up for patient in outpatient setting with Dr. Stroud in 7 days #Diabetes mellitus type 2 On metformin at home A1c of 6.7 Plan: ? Primary team to manage sugars with glargine #History of hyperlipidemia Total cholesterol ~180 LDL ~103 Plan: ?Continue with Lipitor 80 mg by mouth #Hypothyroidism On home Synthroid 75 mcg TSH 8.83 Plan: ? Continue with home Synthroid 75 mcg #Mild hypoosmolar hyponatremia Above managed by primary team Patient seen and care discussed with my attending physician, Dr. Luanne Ballard, PGY-1 Attending Provider Attestation/Addendum I reviewed the resident Dr. Bergman consultation progress note and agree with the resident findings and plan in the note above and have also edited the documentation to reflect my findings and plan. Jose Stroud M.D. Interventional Cardiology
[2024-05-19 15:13] VITALS: BP 119/74; PULSE 94; RESP 18; TEMP 36.3; O2SAT 96
== END 2024-05-19 15:00 | disposition home or self-care (01) | DRG 322 ==
LOC: SERX 14:06 → SERHOLD 18:01 → S2NX 05-15 03:28
PROVIDERS: Internal Medicine Cardiovascular Disease; Nurse Practitioner Family; Nurse Practitioner Primary Care; Student in an Organized Health Care Education/Training Program; Admitting Provider Student in an Organized Health Care Education/Training Program; Emergency Provider Emergency Medicine; PCP Registered Nurse Pediatrics; Visit Provider Student in an Organized Health Care Education/Training Program
PROC: 027034Z Dilation of Coronary Artery, One Artery with Drug-eluting Intraluminal Device, Percutaneous Approach (ICD-10-PCS; principal; 2024-05-17 09:00)
DX: I21.4 Non-ST elevation (NSTEMI) myocardial infarction (principal); E87.1 Hypo-osmolality and hyponatremia; E11.9 Type 2 diabetes mellitus without complications; E03.9 Hypothyroidism, unspecified; Z86.711 Personal history of pulmonary embolism; Z96.653 Presence of artificial knee joint, bilateral; Z79.84 Long term (current) use of oral hypoglycemic drugs; I10 Essential (primary) hypertension; I25.10 Atherosclerotic heart disease of native coronary artery without angina pectoris; E78.5 Hyperlipidemia, unspecified; Z86.718 Personal history of other venous thrombosis and embolism; I77.1 Stricture of artery
CPT/HCPCS: 36415; 71046; 80048; 80053; 80061; 83036; 83735; 83880; 84100; 84439; 84443; 84484; 85025; 85347; 85610; 85730; 87811; 90686; 93005; 93306; 99152; 99153; 99285; A4649; C1725; C1753; C1769; C1874; C1887; C1894; J0171; J0461; J1643; J1644; J1815; J2250; J2270; J2310; J2371; J3010; J3475; J3480; J3490; J7030; J7040; Q9967; A9270; J2305; J9060

== ENCOUNTER 2024-05-22 16:02 | Emergency (ER) | payer MEDICARE, MEDICAID, SELFPAY ==
--- NOTE | 2024-05-22 16:10 | EKG_ITS ---
[facility] Test Date: 2024-05-22 Pat Name: JÚNIOR GOMESDepartment: Room: - Gender: Female Neurosurgical Nurse Practitioner: : 1940 Requested By: ED Temporary Provider Order Number: [id number] Reading MD: ED Temporary Provider Measurements Intervals [place] Rate: 87 P: 71 [place]: 160 QRS: -72 QRSD: 85 T: 65 QT: 364 QTc: 440 Interpretive Statements SINUS RHYTHM WITH SINUS ARRHYTHMIA INDETERMINATE AXIS LOW QRS VOLTAGE IN PRECORDIAL LEADS [QRS DEFLECTION < 1.0 mV IN CHEST LEADS] PATTERN CONSISTENT WITH PULMONARY DISEASE POSSIBLE RIGHT VENTRICULAR CONDUCTION DELAY [RSR (QR) IN V1/V2] LEFT ANTERIOR FASCICULAR BLOCK [QRS AXIS <= -45, QR IN I, RS IN II] Compared to ECG 05/14/2024 13:19:16 Indeterminate axis now present Low QRS voltage now present /store/S0/[id number].pdf
[2024-05-22 16:21] VITALS: BP 129/67; PULSE 88; RESP 18; TEMP 36.7; O2SAT 96
--- NOTE | 2024-05-22 16:30 | XR_ITS ---
Examination: PA lateral chest 2 views Technique: Upright PA lateral chest 2 views Exam date and time: 06/22/2024 1637 hrs. Indications: Onset chest pain today. Findings: Mild to moderate enlargement left ventricle Mild vascular congestion. No lobar pneumonia Central pulmonary arteries are mildly prominent Impression: Mild to moderate enlargement left ventricle Mild central vascular engorgement No lobar pneumonia or pulmonary edema
[2024-05-22 16:33] VITALS: BMI 27.6
--- NOTE | 2024-05-22 16:34 | EDNOTE_ITS ---
ED Chest Pain RME/HPI General Chief Complaint: Chest Pain Stated Complaint: CHEST AND THROAT PRESSURE Time Seen by Provider: 05/22/24 16:31 Arrival date/time: 05/22/24 16:02 RME / HPI RME / HPI narrative: 84-year-old female patient came in for evaluation regarding chest pressure, radiating to the throat, and generalized body weakness. Onset of symptoms earlier this morning. Denies any cough denies any fever denies any other complaints. Patient was discharged. 3 days ago for non-STEMI, three-vessel stents was done by our electrical maintenance supervisor, Dr. Salazar.. Patient denies any other complaints no medications taken prior ER visit Related Data Home Medications ?Medication ?Instructions ?Recorded ?Confirmed levothyroxine 25 mcg tablet 75 mcg PO QDAY 01/17/22 05/15/24 olopatadine 0.1 % eye drops 1 drp ophthalmic (eye) BID 01/17/22 05/15/24 metformin 500 mg tablet 500 mg PO BID 05/15/24 05/15/24 Previous Rx's ?Medication ?Instructions ?Recorded flash glucose scanning reader #1 ea 06/23/22 (QD VisionStyle Yeny 2 [place]) aspirin 81 mg tablet,delayed 81 mg PO QDAY 30 days #30 tabs 05/17/24 release (Ecotrin Low Strength) flash glucose sensor (FreeStyle #2 ea 05/17/24 Yeny 2 Sensor kit) metoprolol succinate 25 mg 25 mg PO QDAY 30 days #30 tabs 05/17/24 tablet,extended release 24 hr atorvastatin 80 mg tablet 80 mg PO QPM 30 days #30 tabs 05/19/24 ticagrelor 90 mg tablet (Brilinta) 90 mg PO BID 30 days #60 tabs 05/19/24 Allergies Allergy/AdvReac Type Severity Reaction Status Date / Time No Known Allergies Allergy Verified 05/22/24 16:02 Review of Systems Review of Systems Narrative Review of Systems: Review of system reviewed and within normal limits except mentioned in HPI ED Exam Narrative Physical exam: VITAL SIGNS: Reviewed. GENERAL APPEARANCE: Alert and interactive, follows commands, no acute distress, HEAD AND FACE: Non-traumatic. ENT: PERRL, pink conjunctivitis, eyelid no trauma, Mucous membrane moist. NECK: Supple, nontender, no nuchal rigidity. CHEST: No tenderness, no crepitus, no paradoxical movement, no retractions. LUNGS: Clear, well ventilated, symmetric, no rales, no wheezing, no ronchi, no stridor, good breath sounds bilaterally. HEART: Regular rate, regular rhythm, no murmur, no gallops. ABDOMEN: Soft, positive bowel sounds, nondistended, no guarding, nontender, no rebound, no masses, RECTAL: Deferred. GENITAL: Deferred. NEUROLOGICAL: Gross motor function intact sensory function intact, Appropriate for age. MUSCULOSKELETAL: low back nontender, full range of motion. EXTREMITIES: Nontender, full range of motion. SKIN: Color pink, dry, no rash, no lacerations, no abrasions, no contusions. LYMPHATICS: Deferred. Course Quality Measures none Orders Category Date Time Status Bedside Influenza A&B Antigen Test NOW Care 05/22/24 16:32 Completed EKG (ED ONLY) *Do not use* NOW Care 05/22/24 16:10 Completed EKG (ED Only) Stat Exams 05/22/24 16:10 Draft XR chest 2V Stat Exams 05/22/24 16:30 Completed B-Type Natriuretic Peptide Stat Lab 05/22/24 16:54 Completed CBC Stat Lab 05/22/24 16:54 Completed Comprehensive Metabolic Panel Stat Lab 05/22/24 16:54 Completed Magnesium Stat Lab 05/22/24 16:54 Completed Partial Thromboplastin Time Stat Lab 05/22/24 16:54 Completed Prothrombin Time with INR Stat Lab 05/22/24 16:54 Completed Troponin I Stat Lab 05/22/24 16:54 Completed Urinalysis Stat Lab 05/22/24 17:40 Completed Vital Signs Vital signs: Vital Signs Temperature 98.1 F 05/22/24 16:21 Pulse Rate 88 05/22/24 16:21 Respiratory Rate 18 05/22/24 16:21 Blood Pressure 129/67 05/22/24 16:21 Pulse Oximetry (%) 96 05/22/24 16:21 Oxygen Delivery Method Room Air 05/22/24 16:21 Chest Pain MDM Narrative MDM Narrative:: 84-year-old female patient came in for evaluation regarding chest pressure, radiating to the throat, and generalized body weakness. Onset of symptoms earlier this morning. Denies any cough denies any fever denies any other compla ints. Patient was discharged. 3 days ago for non-STEMI, three-vessel stents was done by our electrical maintenance supervisor, Dr. Salazar.. Patient denies any other complaints no medications taken prior ER visit Patient's workup today all came back unremarkable except for troponin of 0.608. It was lower than last week. Chest x-ray came back unremarkable. EKG showed sinus rhythm, ventricular rate of [address] segment elevation depression noted. Prior to discharge, patient told me that her chest discomfort is totally gone. She just had a recent triple-lumen stent placement done here last week. Patient appears nontoxic and hemodynamically stable. Patient discharged home and instructed to follow-up with primary care provider in 24 to 48 hours. Instructed to return to the emergency department immediately if worsening of symptoms Patient data External records reviewed:: None Clinical information provided by:: patient Social determinants that could affect healthcare access:: none Patient has the following chronic illnesses:: CAD, status post recent stent placement, diabetes mellitus hypertension, hypercholesterolemia How is presenting disease/condition affected by chronic disease/condition?: exacerbated by Evaluation data The following diagnostics were reviewed and interpreted by me:: lab results, radiology exam(s) and EKG tracing(s) Lab and/or radiology exams considered but not ordered:: None Interpretation Summary: See above in MDM Medications / Prescriptions Medications or Prescriptions considered but not ordered:: None Medication administrations:: None Consultations Consultation(s) initiated? (list below): No Diagnosis Chest Pain Differential Diagnosis: pneumothorax and chest pain Most likely diagnosis given after review of the tests above:: Chest discomfort Admission Indicated Admission indicated?: not indicated Explain why admission is indicated or not indicated:: Stable Admission Request Was there a request for admission?: No Disposition Plan Disposition Plan: Discharge Discharge Attestation Discharge Attestation: The patient and all family members were given an opportunity to ask questions and understood the discharge instructions. Discharge instructions specifically effects, indications for sooner follow up or return to the emergency department, and the expected course of current diagnosis. Patient condition: Stable Discharge Plan Plan Patient Disposition: HOME (Self Care) Disposition Comment: stable Prescriptions/Referrals Prescriptions/Med Rec: No Action metformin 500 mg Tablet 500 mg PO BID aspirin [Ecotrin Low Strength] 81 mg Tablet,Delayed Release (Dr/Ec) 81 mg PO QDAY 30 Days Qty: 30 3RF metoprolol succinate 25 mg Tablet Extended Release 24 Hr 25 mg PO QDAY 30 Days Qty: 30 3RF (DME) FreeStyle Yeny 2 Sensor Kit See Rx Instructions .Route Qty: 2 3RF Rx Instructions: As directed atorvastatin 80 mg tablet 80 mg PO QPM 30 Days Qty: 30 3RF Brilinta 90 mg Tablet 90 mg PO BID 30 Days Qty: 60 2RF levothyroxine 25 mcg Tablet 75 mcg PO QDAY olopatadine 0.1 % Drops 1 drp OPHTHALMIC (EYE) BID Rx Instructions: separate doses by at least 6-8 hours (DME) FreeStyle Yeny 2 [place] Misc See Rx Instructions .Route Qty: 1 0RF Rx Instructions: As directed Referrals: Ashley Granados [employer]CH[employer] P[employer]ILS ASSEMBLER [Primary Care Provider] - In 1 week Problem List Clinical Impression: Chest discomfort Patient/Caregiver Discharge Instructions Discharge Activity: activity as tolerated Education Materials: Understanding the Pain Response Additional Instructions: Thank you for the opportunity for serving you today. You are stable for discharged . You are advised to: Follow-up with your PCP in 1 to 2 days Return to ED for worsening of symptoms Print Language: Estonian Stand Alone Forms: Sydnie Award Info., Patient Portal Info Letter
[2024-05-22 17:01] LABS: Basophils # (Auto) 0.1 Thou/mm3 (0.0-0.2); Basophils % (Auto) 1 % (0-2.5); Eosinophils # (Auto) 0.2 Thou/mm3 (0.0-0.5); Eosinophils % (Auto) 2 % (0-10); Hematocrit 33.9 % (36.0-46.0); Hemoglobin 11.6 g/dL (12.0-16.0); Immature Granulocytes % (Auto) 1 % (0-0); Immature Granulocytes Auto 0.04 Thou/mm3 (0.00-0.00); Lymphocytes # (Auto) 1.1 Thou/mm3 (1.0-4.8); Lymphocytes % (Auto) 14 % (10-50); Mean Corpuscular HGB Conc 34.2 g/dl (31.0-37.0); Mean Corpuscular Hemoglobin 30.1 pg (25.0-35.0); Mean Corpuscular Volume 88 fL (80-100); Monocytes # (Auto) 0.5 Thou/mm3 (0.0-0.8); Monocytes % (Auto) 6 % (0-12); Neutrophils # (Auto) 6.4 Thou/mm3 (1.8-7.7); Neutrophils % (Auto) 77 % (37-80); Nucleated Red Blood Cell % 0 /100 WBC (0); Platelet Count 340 Thou/mm3 (140-440); RDW Standard Deviation 40.5 fL (36.4-46.3); Red Blood Count 3.85 Miln/mm3 (4.00-5.20); White Blood Count 8.2 Thou/mm3 (3.6-11.0)
[2024-05-22 17:16] LABS: INR 1.2 (0.9-1.3); Prothrombin Time 12.5 Seconds (9.0-12.2)
[2024-05-22 17:17] LABS: B-Type Natriuretic Peptide 254 pg/mL (0-100)
[2024-05-22 17:26] LABS: Alanine Aminotransferase 21 U/L (10-49); Albumin, Serum 4.7 gm/dL (3.4-4.8); Albumin/Globulin Ratio 1.5 (1.2-2.2); Alkaline Phosphatase 106 U/L (46-116); Anion Gap 11 (7-16); Aspartate Amino Transferase 23 U/L (0-34); BUN/Creatinine Ratio 20 Ratio (12-20); Bilirubin,Total 0.8 mg/dL (0.3-1.2); Blood Urea Nitrogen 12 mg/dL (9-23); Calcium 9.5 mg/dL (8.3-10.6); Calcium (Corrected) 9.5 mg/dL (8.5-10.1); Carbon Dioxide 21.7 mMol/L (20.0-31.0); Chloride 101 mMol/L (98-107); Creatinine (Component) 0.6 mg/dL (0.6-1.3); Estimated Creatinine Clearance 52.5 mL/min (>60); Globulin 3.1 gm/dL (2.3-3.5); Glucose 114 mg/dL (74-106); Osmolality,Calculated 268 (275-295); Potassium 4.2 mMol/L (3.4-5.1); Sodium 134 mMol/L (136-145); Total Protein 7.8 gm/dL (5.7-8.2); eGFR > 60 See Note
[2024-05-22 17:28] LABS: Troponin I 0.608 ng/mL (0.0-0.045)
[2024-05-22 17:45] LABS: Collection Type, Urine Clean Catch
[2024-05-22 17:58] LABS: Bilirubin,Urine Negative (Negative); Blood,Urine Trace (Negative); Clarity,Urine Clear (Clear/Hazy); Color,Urine Yellow (Lt Yel-Yel); Glucose, Urine Negative (Negative); Ketones,Urine Negative (Negative); Leukocyte Esterase,Urine Negative (Negative); Nitrite,Urine Negative (Negative); PH,Urine 5.5 (5.0-7.0); Protein,Urine Trace (Neg - Trace); RBC,Urine 1 /hpf (0-3); Specific Gravity,Urine 1.022 (1.001-1.035); Squamous Epithelial Cell,Urine 1 /hpf (0-5); Urobilinogen,Urine Negative mg/dL (0.0-1.0); WBC,Urine 4 /hpf (0-5)
[2024-05-22 18:04] VITALS: BP 109/59; PULSE 76; RESP 18; TEMP 37.2; O2SAT 97
--- NOTE | 2024-05-22 18:37 | PC.NURSE ---
RN CLARIFIED WITH [employer]ACQU[employer]INE [employer]PET [employer]ER IF PT OK FOR DISCHARGED WITH ELEVATED TROP; PER PROVIDER, PT STABLE FOR DISCHARGE AT THIS TIME; OK TO DISCHARGE PT NOW.
== END 2024-05-22 18:41 | disposition home or self-care (01) ==
PROVIDERS: Nurse Practitioner Primary Care; Emergency Provider Emergency Medicine; PCP Registered Nurse Pediatrics
DX: R07.89 Other chest pain (principal); Z95.5 Presence of coronary angioplasty implant and graft
CPT/HCPCS: 36415; 71046; 80053; 81001; 83735; 83880; 84484; 85025; 85610; 85730; 87400; 93005; 99283

== ENCOUNTER → 2025-01-31 | Outpatient (CLI) | payer MEDICARE, MEDICAID, SELFPAY ==
[2025-01-31 17:55] LABS: Basophils # (Auto) 0.1 Thou/mm3 (0.0-0.2); Basophils % (Auto) 1 % (0-2.5); Eosinophils # (Auto) 0.1 Thou/mm3 (0.0-0.5); Eosinophils % (Auto) 2 % (0-10); Hematocrit 36.2 % (36.0-46.0); Hemoglobin 12.0 g/dL (12.0-16.0); Immature Granulocytes Auto 0.01 Thou/mm3 (0.00-0.00); Lymphocytes # (Auto) 1.3 Thou/mm3 (1.0-4.8); Lymphocytes % (Auto) 24 % (10-50); Mean Corpuscular HGB Conc 33.1 g/dl (31.0-37.0); Mean Corpuscular Hemoglobin 30.6 pg (25.0-35.0); Mean Corpuscular Volume 92 fL (80-100); Monocytes # (Auto) 0.5 Thou/mm3 (0.0-0.8); Monocytes % (Auto) 9 % (0-12); Neutrophils # (Auto) 3.5 Thou/mm3 (1.8-7.7); Neutrophils % (Auto) 64 % (37-80); Nucleated Red Blood Cell # 0.00 Thou/mm3 (0.00-0.00); Nucleated Red Blood Cell % 0 /100 WBC (0); Platelet Count 260 Thou/mm3 (140-440); RDW Standard Deviation 48.7 fL (36.4-46.3); Red Blood Count 3.92 Miln/mm3 (4.00-5.20); White Blood Count 5.5 Thou/mm3 (3.6-11.0)
[2025-01-31 18:34] LABS: Alanine Aminotransferase 33 U/L (10-49); Albumin, Serum 4.2 gm/dL (3.4-4.8); Albumin/Globulin Ratio 1.8 (1.2-2.2); Alkaline Phosphatase 89 U/L (46-116); Anion Gap 8 (7-16); Aspartate Amino Transferase 36 U/L (0-34); BUN/Creatinine Ratio 20 Ratio (12-20); Bilirubin,Total 0.4 mg/dL (0.3-1.2); Blood Urea Nitrogen 14 mg/dL (9-23); Calcium 9.3 mg/dL (8.3-10.6); Calcium (Corrected) 9.3 mg/dL (8.5-10.1); Carbon Dioxide 26.5 mMol/L (20.0-31.0); Chloride 103 mMol/L (98-107); Creatinine (Component) 0.7 mg/dL (0.6-1.3); Globulin 2.4 gm/dL (2.3-3.5); Glucose 121 mg/dL (74-106); Magnesium 1.7 mg/dL (1.6-2.6); Osmolality,Calculated 275 (275-295); Potassium 4.5 mMol/L (3.4-5.1); Sodium 137 mMol/L (136-145); Total Protein 6.6 gm/dL (5.7-8.2); eGFR > 60 See Note
== END | disposition home or self-care (01) ==
LOC: COPL 16:44
PROVIDERS: PCP Registered Nurse Pediatrics; Referring Provider Internal Medicine Cardiovascular Disease; Visit Provider Internal Medicine Cardiovascular Disease
DX: I25.10 Atherosclerotic heart disease of native coronary artery without angina pectoris (principal)
CPT/HCPCS: 36415; 80053; 83735; 85025